=== PATIENT | female | born 1970 | race Caucasian/White ===

== ENCOUNTER 2016-12-29 09:18 | Day surgery (SDC) | payer MEDICARE ==
--- NOTE | 2016-12-29 09:15 | HP ---
DATE OF SURGERY: 12/29/2016 HISTORY OF PRESENT ILLNESS: The patient is a 46 year-old with cerebral palsy, spastic quadriplegia, hypertension, asthma, depression. History of reflux, dysphagia. She had bed bug exterminator enteral feeding access with PEG tube, now the PEG tube is exhausted leaking around the tubing. PAST MEDICAL HISTORY: She has history of pneumonia and in the hospital for 15 days. She had Baclofen pump replaced in the past. PAST SURGICAL HISTORY: She had G-tube placed in the past. She had finger amputations in the past. She had Baclofen pump in the past. She also had a kidney removed when she was younger. MEDICATIONS: Provided by [facility] include Jevity, methenamine hippurate. Please see the provided paperwork from the care facility. She has been on Valium, Nexium, Neurontin, Zanaflex, Zoloft, Flonase spray, aspirin, Nystatin, zinc oxide ointment. ALLERGIES: NKDA. FAMILY HISTORY: Heart disease. SOCIAL HISTORY: No smoking or alcohol abuse. REVIEW OF SYSTEMS: Twelve systems reviewed per admission assessment. History is unable to obtain directly from the patient per the nursing and paperwork. PHYSICAL EXAMINATION: A chronically ill female with spastic quadriplegia, history of mental retardation, cerebral palsy, spastic quadriplegia. CHEST: Equal excursion, nonlabored breathing currently. CVS: Regular rhythm. ABDOMEN: Soft. G-tube site fine. Tube is exhausted with leaking per care staff member. EXTREMITIES: No significant edema. NEURO: Again, spastic quadriplegia. IMPRESSION: Exhausted gastrostomy tube, need for [facility] enteral feeding access. I feel she would benefit from removal of exhausted tube and placing new PEG tube. Risks and benefits explained in detail including but not limited to bleeding or infection, small risk of bowel injury or perforation possibly requiring open procedure, risk of ongoing morbidity, risk of all the drainage around her wound site possibly requiring other placement or repositioning, general risk of anesthesia, deep venous thrombosis, pulmonary embolism, pneumonia but not limited to, risk of aspiration. Consent is obtained. Will proceed with removal of exhausted G-tube and placement of new PEG tube as an outpatient.
[~2016-12-29 09:18] MED LIST: DIPRIVAN 200 MG/20 ML IV ONE; Ketamine HCl 50 MG/ML IV ONE
[2016-12-29] MEDS ORDERED: CEFAZOLIN 2 GM-D5W BAG** 2 GM/50 ML ML IV ONE ×2 (09:27→09:30)
[2016-12-29] MEDS ORDERED: Lactated Ringers 1,000 ML IV ONE (09:30)
[2016-12-29] MEDS ORDERED: Lactated Ringers 1,000 ML IV SCH (09:30)
[2016-12-29] MEDS ORDERED: APRESOLINE 20 MG/ML INJ ONE (11:53)
[2016-12-29 12:17] VITALS: O2SAT 96
[2016-12-29 13:33] VITALS: BP 143/93; PULSE 110
--- NOTE | 2016-12-31 08:50 | OP ---
SURGERY DATE/TIME: 12/29/2016 1114 PREOPERATIVE DIAGNOSES: 1) History of spastic cerebral palsy, dysphagia, need for [facility] enteral feeding access. 2) Exhausted old gastrostomy tube in need of new access. POSTOPERATIVE DIAGNOSES: 1) History of spastic cerebral palsy, dysphagia, need for mcf[facility] enteral feeding access. 2) Exhausted old gastrostomy tube in need of new access. 3) Mild gastritis. PROCEDURES: 1) Esophagogastroscopy with cold biopsy of the antrum to evaluate for Helicobacter pylori. 2) Removal of exhausted G-tube. 3) Placement of new PEG tube endoscopically. SURGEON: Dr. Kole Bingham. ANESTHESIA: MAC. ESTIMATED BLOOD LOSS: Minimal. INDICATIONS: As noted above. Risks and benefits explained in detail and not limited to and consent obtained. DESCRIPTION OF PROCEDURE AND FINDINGS: The patient is taken to the endoscopy room. MAC anesthesia introduced. After official time out and no disagreement with planned procedure, bite block positioned. Video gastroscope easily passed down the esophagus into the stomach. She had a little bit of hiatal hernia. She did have some gastritis in the antrum. Cold biopsy is taken. There was no grzegorz ulcer but given gastritis cold biopsy taken to evaluate for Helicobacter pylori otherwise the pylorus was patent. Bumper was visualized. Light transilluminating through the abdominal wall. At this point the old tube area had been prepped and draped in usual sterile fashion. 1% lidocaine local infiltrated around the area in aseptic technique, sterile gloves and draped. The old tube was then prepped. Guide wire passed down into the stomach grasped with a snare and pulled up and out the pharynx. The old exhausted tube was then carefully removed intact and passed off. The bumper was intact when passed off. Guide wire had been pulled up and out the oropharynx. New PEG tube attached and then pulled back down up through the abdominal wall in usual fashion. Video gastroscope then passed back down the esophagus behind the bumper. It was felt that it was inside the stomach in flush fashion about 2 cm to skin level externally. Bacitracin ointment as well as superior flange, clamp and feeding connector were then attached. The bumper is in good position. Good hemostasis was noted. The scope is then carefully withdrawn. The esophagus carefully inspected. There was no evidence of any full thickness issues or injury secondary to pulling the tube bumper down through the esophagus. The scope is withdrawn. The patient tolerated the procedure well. There were no immediate complications. Findings discussed with the family or caregiver out in the waiting area.
== END 2016-12-29 12:48 | disposition home or self-care (01) ==
LOC: SDC 09:18
PROVIDERS: ATTEND Surgery
PROC: 0DH63UZ Insertion of Feeding Device into Stomach, Percutaneous Approach (ICD-10-PCS; principal; 2016-12-29)
DX: G80.1 Spastic diplegic cerebral palsy (principal); R13.10 Dysphagia, unspecified; K29.70 Gastritis, unspecified, without bleeding; Z43.1 Encounter for attention to gastrostomy; I10 Essential (primary) hypertension; J45.909 Unspecified asthma, uncomplicated; F32.9 Major depressive disorder, single episode, unspecified; Z79.899 Other long term (current) drug therapy
CPT/HCPCS: 00740; 36415; 88305; J0360; J0690; J2704; L0625

== ENCOUNTER 2017-12-31 12:40 | Emergency (ER) | payer MEDICARE ==
[2017-12-31 13:39] VITALS: BP 130/73; O2SAT 98
--- NOTE | 2017-12-31 13:50 | ERPHSYRPT ---
- History of Present Illness Time Seen by Provider: 12/31/17 13:44 Source: other (caregiver) Exam Limitations: no limitations Patient Subjective Stated Complaint: G-Tube problem per EMS Triage Nursing Assessment: Pt presents to the ED with EMS with complaints of hole in her g-tube. medical accounts receivable specialist states home health called Dr. Green who said to have her brought to ED for evaluation. No distress noted, coban wrapped around g -tube prior to arrival to ED due to leaking tube. Pt alert but unable to assess orientation due to pt being nonverbal. Physician History: This is a 47-year-old white female with history of mental retardation scoliosis quadriplegia who is brought by ambulance with complaint that G-tube had a hole in it. Patient was noted to have a hole in her G-tube by home health with coban and was wrapped around the hole. Past medical history includes cerebral palsy, mental impairment, scoliosis, quadriplegia pump, upper extremities are contracted Lower extremities a locked straight Past surgical history includes kidney surgery, amputation bilateral fifth digits , kidney removal, G-tube Timing/Duration: today Severity: mild Modifying Factors: Improves With: nothing Associated Symptoms: other (patient sent in for hole in her G-tube she is nonverbal) Allergies/Adverse Reactions: No Known Drug Allergies Allergy (Verified 12/24/16 15:38) seasonal allergies Home Medications: Aspirin EC 81 mg [Ecotrin 81 mg] 81 mg PEG DAILY 04/09/13 [History] Esomeprazole Magnesium [Nexium] 10 mg PEG DAILY 04/09/13 [History] Fluticasone Propionate [Flonase NASAL] 2 spray NS DAILY 04/09/13 [History] Gabapentin [Neurontin] 250 mg PEG BID 04/09/13 [History] Sertraline HCl [Zoloft] 100 mg PEG DAILY 04/09/13 [History] Acetaminophen [Mapap] 10 ml PEG Q4H PRN PRN 05/01/14 [History] Amlodipine Besylate 5 mg [Norvasc 5 mg] 2.5 mg PEG DAILY 05/01/14 [History ] Diazepam 10 mg/2 ml Syringe [Valium 10 mg/2 ml Syringe] 5 mg PEG QID [History] Hydrocodone Bit/Acetaminophen [Hydrocodon-Acetaminophen 5-325] 10 ml PEG Q6H PRN PRN 05/01/14 [History] Methenamine Hippurate 1 gm PEG BID 05/01/14 [History] Nystatin Cream 15 gm [Nystop 15 gm Cream] 1 applic TOP DAILY PRN PRN 05/01 [History] Zinc Oxide Ointment 30 gm 1 applic TOP DAILY PRN PRN 05/01/14 [History] Lactose-Reduced Food/Fiber [Jevity 1.2 Oscar Liquid] 1,000 ml PEG UD 05/04/15 [ History] Tizanidine HCl 4 mg [Zanaflex 4 MG] 8 mg PEG DAILY 11/05/15 [History] Baclofen 20 mg PEG Q4H 12/24/16 [History] Hx Tetanus, Diphtheria Vaccination/Date Given: No Hx Influenza Vaccination/Date Given: Yes (2012) Hx Pneumococcal Vaccination/Date Given: Yes (2012) Immunizations Up to Date: Yes - Review of Systems Constitutional: No Fever, No Chills Eyes: No Symptoms Ears, Nose, & Throat: No Symptoms Respiratory: No Cough, No Dyspnea Cardiac: No Chest Pain, No Edema, No Syncope Abdominal/Gastrointestinal: Other (hole in G-tube), No Abdominal Pain, No Nausea , No Vomiting, No Diarrhea Genitourinary Symptoms: No Dysuria Musculoskeletal: No Back Pain, No Neck Pain Skin: No Symptoms Neurological: No Dizziness, No Focal Weakness, No Sensory Changes Psychological: No Symptoms Endocrine: No Symptoms All Other Systems: Unable due to condition - Past Medical History Pertinent Past Medical History: Yes Neurological History: Paralysis, Other ENT History: No Pertinent History Cardiac History: Arrhythmia, Hypertension Respiratory History: No Pertinent History Endocrine Medical History: No Pertinent History Musculoskeletal History: Other GI Medical History: GERD, Hernia, Other History: No Pertinent History Psycho-Social History: Anxiety, Other Female Reproductive Disorders: No Pertinent History Other Medical History: CP, mental retardation, scoliosis, quadriplegic,upper limbs contracted,lower limbs locked straight - Past Surgical History Past Surgical History: Yes Neuro Surgical History: No Pertinent History Cardiac: No Pertinent History Respiratory: No Pertinent History Gastrointestinal: No Pertinent History Genitourinary: Kidney Surgery Musculoskeletal: Amputation Female Surgical History: No Pertinent History Other Surgical History: OLYA LITTLE FINGERS AMPUTATED IN PAST. PEG TUBE, kidney removal. - Social History Smoking Status: Never smoker Exposure to second hand smoke: No Drug Use: none Patient Lives Alone: No - Female History Hx Now: No - Nursing Vital Signs Nursing Vital Signs: Initial Vital Signs Temperature 99.0 F 12/31/17 12:44 Pulse Rate 68 12/31/17 12:44 Respiratory Rate 20 12/31/17 12:44 Blood Pressure 115/75 12/31/17 12:44 O2 Sat by Pulse Oximetry 92 L 12/31/17 12:44 Pain Scale Pain Intensity 0 - Physical Exam General Appearance: no apparent distress, alert Eye Exam: PERRL/EOMI, eyes nml inspection Ears, Nose, Throat Exam: normal ENT inspection, TMs normal, pharynx normal, moist mucous membranes Neck Exam: normal inspection, non-tender, supple, full range of motion Respiratory Exam: normal breath sounds, lungs clear, No respiratory distress Cardiovascular Exam: regular rate/rhythm, normal heart sounds, normal peripheral pulses Gastrointestinal/Abdomen Exam: other (abdomen mildly firm, nontender, G-tube in place positive bowel sounds) Back Exam: other (severe scoliosis) Extremity Exam: other (patient does not move her upper arms llower legs locked straight) Neurologic Exam: alert, diesel automotive technician II-XII nml as tested, other (patient does not speak chronically) Skin Exam: normal color, warm, dry, No rash SpO2 Interpretation: normal (98%) SpO2: 98 Oxygen Delivery: Room Air - Course Nursing assessment & vital signs reviewed: Yes - Progress Progress: improved Progress Note: 12/31/17 13:50 this is a 47 year old white female 12/31/17 13:52 She is brought by ambulance with complaint that she had a hole in her G-tube this morning, the G-tube was wrapped with Coban and patient sent into the emergency room. Dr. Concepcion has come by and replaced the G-tube. Patient does not appear to be in any acute distress. Will send patient back to her home, to continue current medications and treatments. - Departure Time of Disposition: 13:54 Departure Disposition: Home Clinical Impression: Problem with gastrostomy tube Condition: Fair Critical Care Time: No Referrals: [facility] [Primary Care Provider] - Additional Instructions: Return home. Continue current medications and treatment. Follow-up with your family doctor if problems. Return for acute distress or for severe symptoms.
[2017-12-31 14:03] VITALS: PULSE 62
--- NOTE | 2018-01-01 09:20 | OP ---
SURGERY DATE/TIME: 12/31/2017 ER PREOPERATIVE DIAGNOSIS: Nonfunctioning G-tube, occluded. ER POSTOPERATIVE DIAGNOSIS: Nonfunctioning G-tube, occluded. ER PROCEDURE: Percutaneous removal and replacement. SURGEON: Adithya Concepcion M.D. INDICATION: The patient had previous PEG tube. It is clogged up. She was seen and examined in the emergency room. We do have consent of the Power Of Production Sorter. DESCRIPTION OF PROCEDURE: The tube was removed with constant pressure. A new percutaneous balloon tube was inserted and was blown up with 10 cc of saline. The bumper was pressed down. Sterile dressing applied. The patient tolerated the procedure satisfactory.
== END 2017-12-31 14:21 | disposition home or self-care (01) ==
LOC: ED 12:40
DX: K94.23 Gastrostomy malfunction (principal); Z79.899 Other long term (current) drug therapy; Z79.82 Long term (current) use of aspirin; G80.9 Cerebral palsy, unspecified
CPT/HCPCS: 43760; 99283

== ENCOUNTER 2018-02-05 16:43 | Emergency (ER) | payer MEDICARE ==
--- NOTE | 2018-02-05 17:04 | ERPHSYRPT ---
- History of Present Illness Time Seen by Provider: 02/05/18 16:58 Source: EMS, other (caregiver) Exam Limitations: other (severe intellectual difficulties.) Physician History: The patient is a 47-year-old female brought from the [facility] home by ambulance for projectile vomiting and excessive mucus from her mouth. The patient has severe intellectual disabilities and cannot communicate. The caregiver states that she has vomited 3 times. Last week she had a new Layton catheter placed and was also on 1 week of Bactrim. Now her urine output today has diminished and have been blood clots in the urine bag. She has a feeding tube. She has severe deformities of extremities. Timing/Duration: today Severity: moderate Modifying Factors: Improves With: nothing Associated Symptoms: nausea, vomiting Allergies/Adverse Reactions: No Known Drug Allergies Allergy (Verified 02/05/18 17:14) seasonal allergies Home Medications: Aspirin EC 81 mg [Ecotrin 81 mg] 81 mg PEG DAILY 04/09/13 [History] Fluticasone Propionate [Flonase NASAL] 2 spray NS DAILY 04/09/13 [History] Gabapentin [Neurontin] 250 mg PEG BID 04/09/13 [History] Sertraline HCl [Zoloft] 100 mg PEG DAILY 04/09/13 [History] Acetaminophen [Mapap] 10 ml PEG Q4H PRN PRN 05/01/14 [History] Amlodipine Besylate 5 mg [Norvasc 5 mg] 2.5 mg PEG DAILY 05/01/14 [History ] Diazepam 10 mg/2 ml Syringe [Valium 10 mg/2 ml Syringe] 5 mg PEG QID [History] Hydrocodone Bit/Acetaminophen [Hydrocodon-Acetaminophen 5-325] 10 ml PEG Q6H PRN PRN 05/01/14 [History] Methenamine Hippurate 1 gm PEG BID 05/01/14 [History] Nystatin Cream 15 gm [Nystop 15 gm Cream] 1 applic TOP DAILY PRN PRN 05/01 [History] Zinc Oxide Ointment 30 gm 1 applic TOP DAILY PRN PRN 05/01/14 [History] Lactose-Reduced Food/Fiber [Jevity 1.2 Oscar Liquid] 1,000 ml PEG UD 05/04/15 [ History] Tizanidine HCl 4 mg [Zanaflex 4 MG] 8 mg PEG DAILY 11/05/15 [History] Baclofen 20 mg PEG Q4H 12/24/16 [History] Omeprazole/Sodium Bicarbonate [Omeppi 40 mg-1,100 mg Capsule] 1 ea DAILY [History] Hx Tetanus, Diphtheria Vaccination/Date Given: No Hx Influenza Vaccination/Date Given: Yes (2012) Hx Pneumococcal Vaccination/Date Given: Yes (2012) - Review of Systems Constitutional: No Fever, No Chills Eyes: No Symptoms Ears, Nose, & Throat: Other (drooling) Respiratory: No Cough, No Dyspnea Cardiac: No Symptoms Abdominal/Gastrointestinal: Vomiting Genitourinary Symptoms: No Dysuria Musculoskeletal: No Back Pain, No Neck Pain Skin: No Rash Neurological: No Dizziness, No Focal Weakness, No Sensory Changes Psychological: No Symptoms Endocrine: No Symptoms Hematologic/Lymphatic: No Symptoms Immunological/Allergic: No Symptoms All Other Systems: Reviewed and Negative - Past Medical History Pertinent Past Medical History: Yes Neurological History: Paralysis, Other ENT History: No Pertinent History Cardiac History: Arrhythmia, Hypertension Respiratory History: No Pertinent History Endocrine Medical History: No Pertinent History Musculoskeletal History: Other GI Medical History: GERD, Hernia, Other History: No Pertinent History Psycho-Social History: Anxiety, Other Female Reproductive Disorders: No Pertinent History Other Medical History: CP, mental retardation, scoliosis, quadriplegic,upper limbs contracted,lower limbs locked straight - Past Surgical History Past Surgical History: Yes Neuro Surgical History: No Pertinent History Cardiac: No Pertinent History Respiratory: No Pertinent History Gastrointestinal: No Pertinent History Genitourinary: Kidney Surgery Musculoskeletal: Amputation Female Surgical History: No Pertinent History Other Surgical History: OLYA LITTLE FINGERS AMPUTATED IN PAST. PEG TUBE, kidney removal. - Social History Smoking Status: Never smoker Exposure to second hand smoke: No Drug Use: none Patient Lives Alone: No - Nursing Vital Signs Nursing Vital Signs: Initial Vital Signs Temperature 98.1 F 02/05/18 17:05 Pulse Rate 86 02/05/18 17:05 Respiratory Rate 16 02/05/18 17:05 Blood Pressure 156/110 02/05/18 17:05 O2 Sat by Pulse Oximetry 95 02/05/18 17:05 Pain Scale Pain Intensity 0 - Physical Exam General Appearance: no apparent distress, alert Eye Exam: PERRL/EOMI, eyes nml inspection Ears, Nose, Throat Exam: TMs normal, pharynx normal, moist mucous membranes, other (excessive drooling) Neck Exam: normal inspection, non-tender, supple, full range of motion Respiratory Exam: normal breath sounds, rhonchi, No respiratory distress Cardiovascular Exam: regular rate/rhythm, normal heart sounds, normal peripheral pulses Gastrointestinal/Abdomen Exam: soft, normal bowel sounds, No tenderness, No mass Back Exam: No CVA tenderness, No vertebral tenderness Extremity Exam: pelvis stable, other (upper extremity contractions; abnormally shortened and deformed lower extremities.) Neurologic Exam: alert, oriented x 3, cooperative, normal mood/affect, nml cerebellar function, nml station & gait, sensation nml, No motor deficits Skin Exam: normal color, warm, dry, No rash Lymphatic Exam: No adenopathy SpO2 Interpretation: normal Oxygen Delivery: Room Air - Radiology Exams Chest X-ray Interpretation: Reviewed by me, Teleradiologist Report (per Dr Lay), Other (left lung interstitial congestion.) - CT Exams Abdomen/Pelvis CT Interpretation: Tele-radiologist Report (per DR Alexander), Other (status post right nephrectomy; thickening of rectal wall; no acute findings) Ordered Tests: Active Orders 24 hr Category Date Time Status Cath for Specimen-Straight STAT Care 02/05/18 17:11 Active IV Insertion STAT Care 02/05/18 17:08 Active ABDOMEN AND PELVIS W/0 CONTRAS [CT] Stat Exams 02/05/18 17:10 Taken CHEST 1 VIEW (PORTABLE) Stat Exams 02/05/18 17:09 Taken BLOOD CULTURE Stat Lab 02/05/18 17:20 Received CBC W DIFF Stat Lab 02/05/18 17:08 Completed CMP Stat Lab 02/05/18 17:23 Completed CULTURE,URINE Stat Lab 02/05/18 18:22 Received LIPASE Stat Lab 02/05/18 17:23 Completed Lactic Acid Stat Lab 02/05/18 17:20 Completed TROPONIN Q3H Lab 02/05/18 17:23 Completed UA W/ MICROSCOPIC Stat Lab 02/05/18 18:22 Completed Medication Summary Discontinued Medications Generic Name Dose Route Start Last Admin Trade Name Freq PRN Reason Stop Dose Admin Sodium Chloride 500 mls @ 999 mls/hr 02/05/18 17:08 02/05/18 18:55 Sodium Chloride 0.9% 1000 Ml IV 02/05/18 17:38 0 mls/hr .Q31M STA Infusion Sodium Chloride Confirm 02/05/18 17:16 Sodium Chloride 0.9% 1000 Ml Administered 02/05/18 17:17 Dose 1,000 mls @ ud .ROUTE .STK-MED ONE Ondansetron HCl 4 mg 02/05/18 17:11 02/05/18 17:20 Zofran 4 Mg/2 Ml Vial IV 02/05/18 17:12 4 mg STAT ONE Administration Ondansetron HCl Confirm 02/05/18 17:16 Zofran 4 Mg/2 Ml Vial Administered 02/05/18 17:17 Dose 4 mg .ROUTE .STK-MED ONE Lab/Rad Data: Laboratory Result Diagrams 02/05/18 17:08 02/05/18 17:23 Laboratory Results 02/05/18 02/05/18 02/05/18 Range/Units 18:22 17:23 17:23 WBC (4.0-10.5) K/mm3 RBC (4.1-5.4) M/mm3 Hgb (12.0-16.0) gm/dl Hct (35-47) % MCV (78-100) fl MCH (26-32) pg MCHC (32-36) g/dl RDW (11.5-14.0) % Plt Count (150-450) K/mm3 MPV (6-9.5) fl Gran % (36.0-66.0) % Eos # (Auto) (0-0.5) Absolute Lymphs (auto) (1.0-4.6) Absolute Monos (auto) (0.0-1.3) Lymphocytes % (24.0-44.0) % Monocytes % (0.0-12.0) % Eosinophils % (0.00-5.0) % Basophils % (0.0-0.4) % Absolute Granulocytes (1.4-6.9) Basophils # (0-0.4) Sodium 138 (137-145) mmol/L Potassium 4.3 (3.5-5.1) mmol/L Chloride 103 (98-107) mmol/L Carbon Dioxide 23 (22-30) mmol/L Anion Gap 16.1 H (5-15) MEQ/L BUN 16 (7-17) mg/dL Creatinine 0.38 L (0.52-1.04) mg/dL Estimated GFR > 60.0 ML/MIN Glucose 124 H (74-106) mg/dL Lactic Acid (0.4-2.0) Calcium 9.5 (8.4-10.2) mg/dL Total Bilirubin 0.40 (0.2-1.3) mg/dL AST 30 (14-36) U/L ALT 38 H (0-35) U/L Alkaline Phosphatase 175 H (38-126) U/L Troponin I < 0.012 (0.000-0.034) ng/mL Serum Total Protein 8.2 (6.3-8.2) g/dL Albumin 4.7 (3.5-5.0) g/dL Lipase 8979 H (23-300) U/L Ur Collection Type VOID Urine Color YELLOW (YELLOW) Urine Appearance CLEAR (CLEAR) Urine pH 7.0 (5-6) Ur Specific [place] 1.015 (1.005-1.025) Urine Protein 30 (Negative) Urine Ketones NEGATIVE (NEGATIVE) Urine Blood 250 (0-5) Saqib/ul Urine Nitrite POSITIVE (NEGATIVE) Urine Bilirubin NEGATIVE (NEGATIVE) Urine Urobilinogen NORMAL (0-1) mg/dL Ur Leukocyte Esterase 2+ (NEGATIVE) Urine Microscopic RBC 50-100 (0-2) /HPF Urine Microscopic WBC 25-50 (0-5) /HPF Ur Epithelial Cells MODERATE (FEW) /HPF Amorphous Crystals MANY (NEGATIVE) /HPF Urine Bacteria PACKED (NEGATIVE) /HPF Urine Mucus MODERATE (NEGATIVE) /HPF Urine Culture Reflexed YES (NO) Urine Glucose NEGATIVE (NEGATIVE) mg/dL Specimen Received 02/05/18 1830 02/05/18 02/05/18 Range/Units 17:20 17:08 WBC 12.8 H (4.0-10.5) K/mm3 RBC 5.05 (4.1-5.4) M/mm3 Hgb 16.1 H (12.0-16.0) gm/dl Hct 46.6 (35-47) % MCV 92.3 (78-100) fl MCH 31.8 (26-32) pg MCHC 34.5 (32-36) g/dl RDW 12.0 (11.5-14.0) % Plt Count 233 (150-450) K/mm3 MPV 10.6 H (6-9.5) fl Gran % 89.7 H (36.0-66.0) % Eos # (Auto) 0.03 (0-0.5) Absolute Lymphs (auto) 0.74 L (1.0-4.6) Absolute Monos (auto) 0.53 (0.0-1.3) Lymphocytes % 5.8 L (24.0-44.0) % Monocytes % 4.1 (0.0-12.0) % Eosinophils % 0.2 (0.00-5.0) % Basophils % 0.2 (0.0-0.4) % Absolute Granulocytes 11.49 H (1.4-6.9) Basophils # 0.03 (0-0.4) Sodium (137-145) mmol/L Potassium (3.5-5.1) mmol/L Chloride (98-107) mmol/L Carbon Dioxide (22-30) mmol/L Anion Gap (5-15) MEQ/L BUN (7-17) mg/dL Creatinine (0.52-1.04) mg/dL Estimated GFR ML/MIN Glucose (74-106) mg/dL Lactic Acid 1.7 (0.4-2.0) Calcium (8.4-10.2) mg/dL Total Bilirubin (0.2-1.3) mg/dL AST (14-36) U/L ALT (0-35) U/L Alkaline Phosphatase (38-126) U/L Troponin I (0.000-0.034) ng/mL Serum Total Protein (6.3-8.2) g/dL Albumin (3.5-5.0) g/dL Lipase (23-300) U/L Ur Collection Type Urine Color (YELLOW) Urine Appearance (CLEAR) Urine pH (5-6) Ur Specific [place] (1.005-1.025) Urine Protein (Negative) Urine Ketones (NEGATIVE) Urine Blood (0-5) Saqib/ul Urine Nitrite (NEGATIVE) Urine Bilirubin (NEGATIVE) Urine Urobilinogen (0-1) mg/dL Ur Leukocyte Esterase (NEGATIVE) Urine Microscopic RBC (0-2) /HPF Urine Microscopic WBC (0-5) /HPF Ur Epithelial Cells (FEW) /HPF Amorphous Crystals (NEGATIVE) /HPF Urine Bacteria (NEGATIVE) /HPF Urine Mucus (NEGATIVE) /HPF Urine Culture Reflexed (NO) Urine Glucose (NEGATIVE) mg/dL Specimen Received - Progress Progress: unchanged Counseled pt/family regarding: lab results, diagnosis, rad results - Departure Time of Disposition: 19:18 Departure Disposition: Transfer (transfer to [facility] per Dr Little) Clinical Impression: Pancreatitis, UTI (urinary tract infection) Condition: Stable Critical Care Time: No Referrals: SHIV LUNDBERG MD [Primary Care Provider] -
[2018-02-05] MEDS ORDERED: Zofran 4 MG/2 ML VIAL IV ONE (17:11)
[2018-02-05] MEDS ORDERED: Sodium Chloride 0.9% 1000 ML 1,000 ML ONE (17:16)
[2018-02-05] MEDS ORDERED: Zofran 4 MG/2 ML VIAL ONE (17:16)
[2018-02-05 17:23] LABS: BASOPHIL % 0.2 % (0.0-0.4); Basophil (Absolute #) 0.03 (0-0.4); Eosinophil % 0.2 % (0.00-5.0); Eosinophil (Absolute #) 0.03 (0-0.5); Granulocyte Absolute (ANC) 11.49 (1.4-6.9); Granulocytes % 89.7 % (36.0-66.0); Hematocrit 46.6 % (35-47); Hemoglobin 16.1 gm/dl (12.0-16.0); Lymphocyte (Absolute #) 0.74 (1.0-4.6); Lymphocytes % 5.8 % (24.0-44.0); Mean Cell Volume 92.3 fl (78-100); Mean Corpuscular Hemoglobin 31.8 pg (26-32); Mean Corpuscular Hgb Concent. 34.5 g/dl (32-36); Mean Platelet Volume 10.6 fl (6-9.5); Monocyte (Absolute #) 0.53 (0.0-1.3); Monocytes % 4.1 % (0.0-12.0); Platelet Count 233 K/mm3 (150-450); Red Blood Count 5.05 M/mm3 (4.1-5.4); White Blood Count 12.8 K/mm3 (4.0-10.5)
[2018-02-05 17:43] LABS: ALBUMIN 4.7 g/dL (3.5-5.0); ALKALINE PHOSPHATASE 175 U/L (38-126); ANION GAP 16.1 MEQ/L (5-15); BLOOD UREA NITROGEN 16 mg/dL (7-17); CHLORIDE 103 mmol/L (98-107); Calcium 9.5 mg/dL (8.4-10.2); Carbon Dioxide 23 mmol/L (22-30); Creatinine 1 0.38 mg/dL (0.52-1.04); Glucose 124 mg/dL (74-106); Potassium 4.3 mmol/L (3.5-5.1); SGOT/AST 30 U/L (14-36); SGPT/ALT 38 U/L (0-35); SODIUM 138 mmol/L (137-145); Total Protein 8.2 g/dL (6.3-8.2)
[2018-02-05 18:41] LABS: LIPASE 8979 U/L (23-300)
[2018-02-05 18:42] LABS: Appearance CLEAR (CLEAR); Bilirubin NEGATIVE (NEGATIVE); Blood 250 Ery/ul (0-5); Glucose NEGATIVE (NEGATIVE); Ketones NEGATIVE (NEGATIVE); Leukocyte Esterase 2+ (NEGATIVE); Mucus MODERATE /HPF (NEGATIVE); Nitrite POSITIVE (NEGATIVE); Protein,Urine Dip 30 (Negative); Specific Gravity 1.015 (1.005-1.025); Urobilinogen NORMAL mg/dL (0-1)
[2018-02-05 18:43] LABS: Amourphous Crystal MANY /HPF (NEGATIVE); Bacteria PACKED /HPF (NEGATIVE); Epithelial Cells MODERATE /HPF (FEW); RBC 50-100 /HPF (0-2); WBC 25-50 /HPF (0-5)
[2018-02-05 20:59] VITALS: BP 176/103; PULSE 103; O2SAT 93
--- NOTE | 2018-02-05 22:11 | XRAY ---
Indication: Nausea and vomiting. Unable to follow instructions. Multiple contiguous axial images obtained through the abdomen and pelvis without contrast as ordered. Comparison: March 04, 2007. Again severe dextrorotoscoliosis. Lung bases are grossly clear. Heart is not enlarged. New PEG tube with balloon tip in the gastric lumen. Stomach is mildly fluid and air distended. Noncontrasted stomach and bowel loops appear nonobstructed. The fold catheter with balloon tip in lateral lumen. Mild urinary bladder wall thickening either from incomplete distention versus cystitis. No free fluid/air. Again right nephrectomy. New left upper renal punctate calcification. Remaining liver, gallbladder, pancreas, spleen, left adrenal gland, left kidney, left ureter, bladder, uterus, and aorta appear unremarkable for noncontrast exam. Osseous structures again demonstrates bilateral hip dysplasia. New finding old right inferior pubic ramus fracture. Impression: 1. Query borderline urinary bladder wall thickening either from incomplete distention versus cystitis. 2. New indeterminant left renal cortical punctate calcification. 3. New PEG tube and Layton catheter in situ. 4. Stable bony deformities including severe dextrorotoscoliosis and bilateral hip dysplasia. New finding old right inferior pubic ramus fracture. Comment: Preliminary interpretation was made by [facility]. No critical discrepancy. CTDI 23.69
--- NOTE | 2018-02-05 22:13 | XRAY ---
Indication: Nausea and vomiting. Excessive drooling. Possible aspiration. Comparison: April 05, 2013. Portable chest demonstrates new diffuse left lung hazy airspace opacity without consolidation or large effusion. Remaining heart and right lung unremarkable. Bony thorax again demonstrates dextrorotoscoliosis. Comment: Preliminary interpretation was made by [facility]. No discrepancy.
== END 2018-02-05 21:14 | disposition short-term general hospital (02) ==
LOC: ED 16:43
DX: K85.90 Acute pancreatitis without necrosis or infection, unspecified (principal); N39.0 Urinary tract infection, site not specified; Z79.899 Other long term (current) drug therapy; Z79.82 Long term (current) use of aspirin; F79 Unspecified intellectual disabilities
CPT/HCPCS: 36000; 36415; 71045; 74176; 80053; 81000; 83605; 83690; 84484; 85025; 87040; 87077; 87086; 87186; 96360; 96374; 99285; P9612; 99284; J2405

== ENCOUNTER 2018-03-28 18:30 | Emergency (ER) | payer MEDICARE ==
--- NOTE | 2018-03-28 19:41 | ERPHSYRPT ---
- History of Present Illness Time Seen by Provider: 03/28/18 19:05 Historian: family, EMS Exam Limitations: clinical condition, other (pt has severe mental retardation/ deficiency) Patient Subjective Stated Complaint: pt brought in by ambulance for gtube coming out, pt was found in bed with gtube in bed with feeding running, caregiver unsure of what happened, pt in nonverbal. Triage Nursing Assessment: pt awake, resp easy, skin w/d/p.no edema, pt has fc in place and draining urine, pt has gtube site to abd. Physician History: 47 y/o white female, who has had a gastric tube in place for 4 to 5 years, presents to ED after G tube dislodged at approx 1400 today. pt brought into ED via ems for replacement. Timing/Duration: today Activities at Onset: none Quality: other (g tube dislodged) Abdominal Pain Onset Location: other (no abd pain) Pain Radiation: no radiation Severity of Pain-Max: none Severity of Pain-Current: none Modifying Factors: Improves With: nothing Associated Symptoms: No chest pain, No diaphoresis, No diarrhea, No loss of appetite, No nausea, No shortness of breath, No vomiting Previous symptoms: same symptoms as today Allergies/Adverse Reactions: Iodinated Contrast- Oral and IV Dye Adverse Reaction (Verified 03/28/18 18:38) Home Medications: Aspirin EC 81 mg [Ecotrin 81 mg] 81 mg PEG DAILY 04/09/13 [History] Fluticasone Propionate [Flonase NASAL] 2 spray NS DAILY 04/09/13 [History] Gabapentin [Neurontin] 250 mg PEG BID 04/09/13 [History] Sertraline HCl [Zoloft] 100 mg PEG DAILY 04/09/13 [History] Acetaminophen [Mapap] 10 ml PEG Q4H PRN PRN 05/01/14 [History] Amlodipine Besylate 5 mg [Norvasc 5 mg] 2.5 mg PEG DAILY 05/01/14 [History ] Diazepam 10 mg/2 ml Syringe [Valium 10 mg/2 ml Syringe] 5 mg PEG QID [History] Hydrocodone Bit/Acetaminophen [Hydrocodon-Acetaminophen 5-325] 10 ml PEG Q6H PRN PRN 05/01/14 [History] Methenamine Hippurate 1 gm PEG BID 05/01/14 [History] Nystatin Cream 15 gm [Nystop 15 gm Cream] 1 applic TOP DAILY PRN PRN 05/01 [History] Zinc Oxide Ointment 30 gm 1 applic TOP DAILY PRN PRN 05/01/14 [History] Lactose-Reduced Food/Fiber [Jevity 1.2 Oscar Liquid] 1,000 ml PEG UD 05/04/15 [ History] Tizanidine HCl 4 mg [Zanaflex 4 MG] 8 mg PEG DAILY 11/05/15 [History] Baclofen 20 mg PEG Q4H 12/24/16 [History] Omeprazole/Sodium Bicarbonate [Omeppi 40 mg-1,100 mg Capsule] 1 ea DAILY [History] Hx Tetanus, Diphtheria Vaccination/Date Given: No Hx Influenza Vaccination/Date Given: No Hx Pneumococcal Vaccination/Date Given: Yes Immunizations Up to Date: Yes - Review of Systems Constitutional: No Symptoms, No Fever Eyes: No Symptoms, No Discharge, No Eye Pain Ears, Nose, & Throat: No Symptoms, No Ear Pain, No Hearing Changes, No Nose Pain , No Mouth Pain Respiratory: No Symptoms, No Cough, No Dyspnea, No Stridor, No Wheezing Cardiac: No Symptoms, No Chest Pain, No Palpitations, No Syncope Abdominal/Gastrointestinal: No Symptoms, Other (g tube dislodged), No Abdominal Pain, No Nausea, No Vomiting Genitourinary Symptoms: No Symptoms, No Dysuria, No Frequency, No Hematuria Musculoskeletal: No Symptoms Skin: No Symptoms Neurological: No Symptoms Psychological: No Symptoms Endocrine: No Symptoms Hematologic/Lymphatic: No Symptoms Immunological/Allergic: No Symptoms All Other Systems: Reviewed and Negative - Past Medical History Pertinent Past Medical History: Yes Neurological History: Paralysis, Other ENT History: No Pertinent History Cardiac History: Arrhythmia, Hypertension Respiratory History: No Pertinent History Endocrine Medical History: No Pertinent History Musculoskeletal History: Other GI Medical History: GERD, Hernia, Other History: No Pertinent History Psycho-Social History: Anxiety, Other Female Reproductive Disorders: No Pertinent History Other Medical History: CP, mental retardation, scoliosis, quadriplegic,upper limbs contracted,lower limbs locked straight - Past Surgical History Past Surgical History: Yes Neuro Surgical History: No Pertinent History Cardiac: No Pertinent History Respiratory: No Pertinent History Gastrointestinal: No Pertinent History Genitourinary: Kidney Surgery Musculoskeletal: Amputation Female Surgical History: No Pertinent History Other Surgical History: OLYA LITTLE FINGERS AMPUTATED IN PAST. PEG TUBE, kidney removal. - Social History Smoking Status: Never smoker Exposure to second hand smoke: No Drug Use: none Patient Lives Alone: No - Female History Hx Last Menstrual Period: none Hx Now: No - Nursing Vital Signs Nursing Vital Signs: Initial Vital Signs Temperature 97.0 F 03/28/18 18:31 Pulse Rate 110 H 03/28/18 18:31 Respiratory Rate 20 03/28/18 18:31 Blood Pressure 115/97 03/28/18 18:31 O2 Sat by Pulse Oximetry 97 03/28/18 18:31 Pain Scale Pain Intensity 0 - Physical Exam General Appearance: no apparent distress, alert Eye Exam: PERRL/EOMI Ears, Nose, Throat Exam: normal ENT inspection Neck Exam: normal inspection, non-tender, supple, full range of motion Respiratory Exam: normal breath sounds, lungs clear, airway intact, No chest tenderness, No respiratory distress, No accessory muscle use, No rhonchi, No wheezing, No stridor Cardiovascular Exam: regular rate/rhythm, normal heart sounds Gastrointestinal/Abdomen Exam: soft, normal bowel sounds, other (g tube dislodged.), No tenderness, No distention, No guarding, No rebound Pelvic Exam: not done Rectal Exam: not done Back Exam: other (pt severely, chronically contracted), No normal inspection, No normal range of motion, No CVA tenderness, No vertebral tenderness Extremity Exam: other (pt severely chronically contracted) Neurologic Exam: alert Skin Exam: normal color, warm Lymphatic Exam: No adenopathy SpO2 Interpretation: normal SpO2: 97 Oxygen Delivery: Room Air Procedures - Additional Procedures Additional Procedures: gastric tube replacement Progress: area of g tube opening probed with hemostat. opening into stomach found. opening stretched. 20 maori g tube placed. balloon inflated with 15ml of sterile water. no complications - Course Nursing assessment & vital signs reviewed: Yes - Progress Progress: improved Counseled pt/family regarding: diagnosis, need for follow-up - Departure Time of Disposition: 19:43 Departure Disposition: Home Clinical Impression: Complaint associated with gastric tube Condition: Stable Critical Care Time: No Referrals: SHIV LUNDBERG MD [Primary Care Provider] - Additional Instructions: resume gastric tube routine care, flushing and tube feeds. take every precaution to prevent gastric tube dislodgement at time of transferring patient anywhere
[2018-03-28 19:56] VITALS: BP 140/105; PULSE 120; O2SAT 92
== END 2018-03-28 20:48 | disposition home or self-care (01) ==
LOC: ED 18:30
DX: K94.23 Gastrostomy malfunction (principal); Z79.899 Other long term (current) drug therapy
CPT/HCPCS: 43760; 99283

== ENCOUNTER 2018-08-25 08:39 | Emergency (ER) | payer MEDICARE ==
[2013-04-05 14:20] VITALS: BP 158/82
--- NOTE | 2018-08-25 09:17 | ERPHSYRPT ---
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 PT slightly tachypnic. PT g- tube not in place. training associate at bedside. Physician History: 48 y/o white female with a longstanding gastric tube in place this am. came out during sleep. pt brought to ED for replacement of g tube. the caregiver did not bring the tube with her. does not know the specific kind Timing/Duration: today Modifying Factors: Improves With: nothing Associated Symptoms: vomiting (chronic intermittent) Allergies/Adverse Reactions: Iodinated Contrast- Oral and IV Dye Adverse Reaction (Verified 03/28/18 18:38) Home Medications: Aspirin EC 81 mg [Ecotrin 81 mg] 81 mg PEG DAILY 04/09/13 [History] Fluticasone Propionate [Flonase NASAL] 2 spray NS DAILY 04/09/13 [History] Gabapentin [Neurontin] 250 mg PEG BID 04/09/13 [History] Sertraline HCl [Zoloft] 100 mg PEG DAILY 04/09/13 [History] Acetaminophen [Mapap] 10 ml PEG Q4H PRN PRN 05/01/14 [History] Amlodipine Besylate 5 mg [Norvasc 5 mg] 2.5 mg PEG DAILY 05/01/14 [History ] Diazepam 10 mg/2 ml Syringe [Valium 10 mg/2 ml Syringe] 5 mg PEG QID [History] Hydrocodone Bit/Acetaminophen [Hydrocodon-Acetaminophen 5-325] 10 ml PEG Q6H PRN PRN 05/01/14 [History] Methenamine Hippurate 1 gm PEG BID 05/01/14 [History] Nystatin Cream 15 gm [Nystop 15 gm Cream] 1 applic TOP DAILY PRN PRN 05/01 [History] Zinc Oxide Ointment 30 gm 1 applic TOP DAILY PRN PRN 05/01/14 [History] Lactose-Reduced Food/Fiber [Jevity 1.2 Oscar Liquid] 1,000 ml PEG UD 05/04/15 [ History] Tizanidine HCl 4 mg [Zanaflex 4 MG] 8 mg PEG DAILY 11/05/15 [History] Baclofen 20 mg PEG Q4H 12/24/16 [History] Omeprazole/Sodium Bicarbonate [Omeppi 40 mg-1,100 mg Capsule] 1 ea DAILY [History] Hx Tetanus, Diphtheria Vaccination/Date Given: No Hx Influenza Vaccination/Date Given: (unknown) Hx Pneumococcal Vaccination/Date Given: (unknown) Immunizations Up to Date: Yes - Review of Systems Constitutional: No Symptoms Eyes: No Symptoms Ears, Nose, & Throat: No Symptoms Respiratory: No Symptoms Cardiac: No Symptoms Abdominal/Gastrointestinal: No Symptoms Genitourinary Symptoms: No Symptoms Musculoskeletal: No Symptoms Skin: No Symptoms Neurological: No Symptoms Psychological: No Symptoms Endocrine: No Symptoms Hematologic/Lymphatic: No Symptoms Immunological/Allergic: No Symptoms All Other Systems: Reviewed and Negative - Past Medical History Pertinent Past Medical History: Yes Neurological History: Paralysis, Other ENT History: No Pertinent History Cardiac History: Arrhythmia, Hypertension Respiratory History: No Pertinent History Endocrine Medical History: No Pertinent History Musculoskeletal History: Other GI Medical History: GERD, Hernia, Other History: No Pertinent History Psycho-Social History: Anxiety, Other Female Reproductive Disorders: No Pertinent History Other Medical History: CP, mental retardation, scoliosis, quadriplegic,upper limbs contracted,lower limbs locked straight - Past Surgical History Past Surgical History: Yes Neuro Surgical History: No Pertinent History Cardiac: No Pertinent History Respiratory: No Pertinent History Gastrointestinal: No Pertinent History Genitourinary: Kidney Surgery Musculoskeletal: Amputation Female Surgical History: No Pertinent History Other Surgical History: OLYA LITTLE FINGERS AMPUTATED IN PAST. PEG TUBE, kidney removal. - Social History Smoking Status: Never smoker Exposure to second hand smoke: Yes Drug Use: none Patient Lives Alone: No - Female History Hx Now: No - Nursing Vital Signs Nursing Vital Signs: Initial Vital Signs Temperature 99.1 F 08/25/18 08:40 Pulse Rate 118 H 08/25/18 08:40 Respiratory Rate 22 08/25/18 08:40 Pain Scale Pain Intensity 0 - Physical Exam General Appearance: no apparent distress Eye Exam: PERRL/EOMI Ears, Nose, Throat Exam: normal ENT inspection Neck Exam: normal inspection Respiratory Exam: normal breath sounds Cardiovascular Exam: regular rate/rhythm Gastrointestinal/Abdomen Exam: soft, normal bowel sounds, other (g tube ostomy site present; no infection), No tenderness, No guarding, No rebound Pelvic Exam: not done Rectal Exam: not done Back Exam: normal inspection Extremity Exam: normal inspection Neurologic Exam: alert Skin Exam: normal color, warm, dry Lymphatic Exam: No adenopathy SpO2 Interpretation: normal O2 Delivery: Room Air Procedures - Additional Procedures Additional Procedures: gastric tube replacement Progress: judi well; no complications - Course Nursing assessment & vital signs reviewed: Yes - Progress Progress: unchanged Counseled pt/family regarding: diagnosis, need for follow-up - Departure Time of Disposition: 09:19 Departure Disposition: Home Clinical Impression: Complaint associated with gastric tube, PEG (percutaneous endoscopic gastrostomy) adjustment/replacement/removal Condition: Stable Critical Care Time: No Referrals: SHIV LUNDBERG MD [Primary Care Provider] - Additional Instructions: continue gastric tube care and maintenance. may restart tube feeds.
[2018-08-25 09:38] VITALS: PULSE 110
== END 2018-08-25 09:38 | disposition home or self-care (01) ==
LOC: ED 08:39
DX: Z43.1 Encounter for attention to gastrostomy (principal); F41.9 Anxiety disorder, unspecified; F79 Unspecified intellectual disabilities; M41.9 Scoliosis, unspecified; G82.50 Quadriplegia, unspecified; M62.462 Contracture of muscle, left lower leg; M62.461 Contracture of muscle, right lower leg; I10 Essential (primary) hypertension; K21.9 Gastro-esophageal reflux disease without esophagitis; Z79.899 Other long term (current) drug therapy
CPT/HCPCS: 99283

== ENCOUNTER 2018-08-27 10:31 | Inpatient (IN) | payer MEDICARE ==
[2018-08-27] MEDS ORDERED: TYLENOL SUSPENSION 160 MG/5 ML PEG PRN (11:20)
[2018-08-27] MEDS ORDERED: MEDICATION INTERVENTION PO SCH ×2 (11:30)
[2018-08-27] MEDS ORDERED: Sodium Chloride 0.9% 1000 ML 1,000 ML IV SCH (11:30)
[2018-08-27] MEDS ORDERED: LIORESAL 10 MG PEG SCH (12:00)
[2018-08-27] MEDS ORDERED: Valium 5 MG PEG SCH (12:00)
[2018-08-27 12:19] LABS: Hematocrit 43.2 % (35-47); Hemoglobin 14.5 gm/dl (12.0-16.0); Mean Cell Volume 93.1 fl (78-100); Mean Corpuscular Hemoglobin 31.3 pg (26-32); Mean Corpuscular Hgb Concent. 33.6 g/dl (32-36); Mean Platelet Volume 10.7 fl (6-9.5); Platelet Count 263 K/mm3 (150-450); Red Blood Count 4.64 M/mm3 (4.1-5.4); Red Cell Distribution Width 12.5 % (11.5-14.0)
--- NOTE | 2018-08-27 12:29 | XRAY ---
Exam: AP semierect upright portable chest film from 08/27/2018. Comparison: AP supine portable chest film from 02/05/2018. Indication: 48-year-old female with dehydration, pneumonia. Findings: The patient is laterally tilted toward her left representing no change. The transverse heart size appears within normal limits for this AP portable technique. Mild left perihilar vascular/interstitial congestion is again seen representing no significant change from 02/05/2018 (i.e. chronic). The remainder of the lung crook is clear. The level of inspiration is not deep. No pneumothorax or definite pleural fluid is seen. A PEG tube is seen within the upper midabdomen. Some surgical clips are seen within the right upper quadrant, perhaps due to prior cholecystectomy. There is a moderate to marked rotary dextroscoliosis within the lower thoracic spine. Some mild degenerative disc disease and degenerative joint disease are seen at C6-C7 and the right uncovertebral joint. Impression: 1. Low lung volumes with mild left perihilar vascular/interstitial congestion without definite airspace infiltrate. This is similar to 02/05/2018 suggesting that this is probably chronic. 2. I see no new airspace infiltrate or other acute cardiopulmonary disease.
[2018-08-27 12:49] LABS: ALBUMIN 4.5 g/dL (3.5-5.0); ALKALINE PHOSPHATASE 166 U/L (38-126); ANION GAP 13.3 MEQ/L (5-15); BLOOD UREA NITROGEN 8 mg/dL (7-17); CHLORIDE 103 mmol/L (98-107); Calcium 9.7 mg/dL (8.4-10.2); Carbon Dioxide 28 mmol/L (22-30); Creatinine 1 0.25 mg/dL (0.52-1.04); Glucose 90 mg/dL (74-106); Potassium 4.3 mmol/L (3.5-5.1); SGOT/AST 23 U/L (14-36); SGPT/ALT 24 U/L (0-35); SODIUM 139 mmol/L (137-145); Total Protein 8.6 g/dL (6.3-8.2)
[2018-08-27 13:06] LABS: INFLUENZA A NEGATIVE (NEGATIVE); INFLUENZA B NEGATIVE (NEGATIVE); RESPIRATORY SYNCTIAL VIRUS NEGATIVE (Negative)
[2018-08-27 13:51] LABS: BAND 5 % (0.0-2.0); Lymphocytes 14 % (24-44); Monocyte 4 % (0.0-12.0); Neutrophils 77 % (36.0-66.0); Total Cells Counted 100
[2018-08-27] MEDS: DUONEB 0.5-3 MG/3 ml Neb IH SCH ×2 (13:51→19:52)
[2018-08-27 13:52] LABS: Platelet Estimate NORMAL (NORMAL)
[2018-08-27 13:53] LABS: Granulocyte Absolute (ANC) 10.09 (1.4-6.9)
[2018-08-27] MEDS: ROCEPHIN 1 Gm-D5w 50 ml Bag** 1 G/50 ML IVPB IV SCH (14:42)
[2018-08-27] MEDS ORDERED: FIBER PEG SCH (16:00)
[2018-08-27] MEDS ORDERED: LACTOSE REDUCED FOOD PEG SCH (16:00)
[2018-08-27] MEDS ORDERED: Zofran 4 MG/2 ML VIAL IV PRN (16:13)
[2018-08-27 16:26] LABS: AMYLASE 78 U/L (30-110); LIPASE 189 U/L (23-300)
[2018-08-27] MEDS: D5W/0.45NS W/ 20mEq KCl 1000 ML 1,000 ML IV SCH (16:32)
[2018-08-27] MEDS: Zithromax 500 MG/ 250 ML NaCl Premix 500 MG/250 ML IVPB IV SCH (16:52)
[2018-08-27] MEDS: Zanaflex 4 MG PEG SCH ×2 (16:53→22:49)
[2018-08-27] MEDS: LIORESAL 10 MG PEG SCH ×3 (16:53→23:59)
[2018-08-27] MEDS: PATIENT OWN MEDICATION PEG SCH ×4 (18:55→23:14)
[2018-08-27] MEDS ORDERED: METHENAMINE HIPPURATE 1 GM PEG SCH (22:00)
[2018-08-27] MEDS: PATIENT OWN MEDICATION PEG PRN (22:51)
[2018-08-28] MEDS: DUONEB 0.5-3 MG/3 ml Neb IH SCH ×4 (01:26→20:16)
[2018-08-28] MEDS: D5W/0.45NS W/ 20mEq KCl 1000 ML 1,000 ML IV SCH ×3 (02:42→23:02)
[2018-08-28] MEDS: LIORESAL 10 MG PEG SCH ×6 (05:05→22:40)
[2018-08-28] MEDS: PATIENT OWN MEDICATION PEG SCH ×9 (05:05→22:42)
--- NOTE | 2018-08-28 08:18 | PCM.NOTE ---
Date and Time: 08/28/18815 Subjective Assessment: fallon muro had a large amount of mucous nasally suctioned and seems to be doing better now. no vomiting overnight. Objective Exam General Appearance: no apparent distress Skin Exam: normal color, warm, dry Respiratory Exam: rhonchi Cardiovascular Exam: regular rate/rhythm, normal heart sounds Gastrointestinal/Abdomen Exam: soft, No tenderness, No mass Extremity Exam: other (severe contortion of spine and contractures) OBJECTIVE DATA Vital Signs: Vital Signs - 24 hr Temp Pulse Resp BP BP Pulse Ox 08/28/18 07:37 115 H 28 H 90 L 08/28/18 07:33 99.1 F 115 H 28 H 177/99 90 L 08/28/18 04:00 97.8 F 93 H 22 135/75 90 L 08/28/18 01:27 96 H 26 H 90 L 08/28/18 00:00 101 F 102 H 28 H 112/65 90 L 08/27/18 20:00 100.2 F 141 H 36 H 178/100 174/125 94 L 08/27/18 19:57 141 H 38 H 93 L 08/27/18 16:00 99.1 F 131 H 26 H 189/115 94 L 08/27/18 14:03 99 08/27/18 14:00 96 H 24 99 08/27/18 12:00 98.3 F 100 H 26 H 132/96 100 Pain Assessment - Last Documented Pain Scale Used 0-10 Pain Scale Intake and Output: Intake & Output 08/25/18 08/26/18 08/27/18 08/28/18 11:59 11:59 11:59 11:59 Intake Total 1485 Output Total 850 Balance 635 Weight 50.5 kg Lab Results: Lab Results-Last 24 Hours 08/27/18 08/27/18 08/27/18 Range/Units 11:15 11:50 11:50 WBC 12.0 H (4.0-10.5) K/mm3 RBC 4.64 (4.1-5.4) M/mm3 Hgb 14.5 (12.0-16.0) gm/dl Hct 43.2 (35-47) % MCV 93.1 (78-100) fl MCH 31.3 (26-32) pg MCHC 33.6 (32-36) g/dl RDW 12.5 (11.5-14.0) % Plt Count 263 (150-450) K/mm3 MPV 10.7 H (6-9.5) fl Absolute Granulocytes 10.09 H (1.4-6.9) Segmented Neutrophils 77 H (36.0-66.0) % Band Neutrophils 5 H (0.0-2.0) % Lymphocytes (Manual) 14 L (24-44) % Monocytes (Manual) 4 (0.0-12.0) % Platelet Estimate NORMAL (NORMAL) RBC Morphology NORMAL Sodium 139 (137-145) mmol/L Potassium 4.3 (3.5-5.1) mmol/L Chloride 103 (98-107) mmol/L Carbon Dioxide 28 (22-30) mmol/L Anion Gap 13.3 (5-15) MEQ/L BUN 8 (7-17) mg/dL Creatinine 0.25 L (0.52-1.04) mg/dL Estimated GFR > 60.0 ML/MIN Glucose 90 (74-106) mg/dL Lactic Acid 0.9 (0.4-2.0) Calcium 9.7 (8.4-10.2) mg/dL Total Bilirubin 0.60 (0.2-1.3) mg/dL AST 23 (14-36) U/L ALT 24 (0-35) U/L Alkaline Phosphatase 166 H (38-126) U/L Serum Total Protein 8.6 H (6.3-8.2) g/dL Albumin 4.5 (3.5-5.0) g/dL Amylase (30-110) U/L Lipase (23-300) U/L Influenza Type A Ag (NEGATIVE) Influenza Type B Ag (NEGATIVE) RSV (PCR) (Negative) 08/27/18 08/27/18 Range/Units 11:50 Unknown WBC (4.0-10.5) K/mm3 RBC (4.1-5.4) M/mm3 Hgb (12.0-16.0) gm/dl Hct (35-47) % MCV (78-100) fl MCH (26-32) pg MCHC (32-36) g/dl RDW (11.5-14.0) % Plt Count (150-450) K/mm3 MPV (6-9.5) fl Absolute Granulocytes (1.4-6.9) Segmented Neutrophils (36.0-66.0) % Band Neutrophils (0.0-2.0) % Lymphocytes (Manual) (24-44) % Monocytes (Manual) (0.0-12.0) % Platelet Estimate (NORMAL) RBC Morphology Sodium (137-145) mmol/L Potassium (3.5-5.1) mmol/L Chloride (98-107) mmol/L Carbon Dioxide (22-30) mmol/L Anion Gap (5-15) MEQ/L BUN (7-17) mg/dL Creatinine (0.52-1.04) mg/dL Estimated GFR ML/MIN Glucose (74-106) mg/dL Lactic Acid (0.4-2.0) Calcium (8.4-10.2) mg/dL Total Bilirubin (0.2-1.3) mg/dL AST (14-36) U/L ALT (0-35) U/L Alkaline Phosphatase (38-126) U/L Serum Total Protein (6.3-8.2) g/dL Albumin (3.5-5.0) g/dL Amylase 78 (30-110) U/L Lipase 189 (23-300) U/L Influenza Type A Ag NEGATIVE (NEGATIVE) Influenza Type B Ag NEGATIVE (NEGATIVE) RSV (PCR) NEGATIVE (Negative) Radiology Exams: Radiology Procedures Category Date Time Status CHEST 1 VIEW (PORTABLE) Routine Exams 08/27/18 11:15 Completed Multi-Disciplinary Progress Notes: Multi-Disciplinary Progress Notes 08/27/18 22:35 Respiratory Note by Lefty Ruelas NURSING CALLED TO REQUEST SUCTIONING FOR PT SHE HAD BEEN COUGHING AND THEY NOTICED SHE WAS BLOWING SOMETHING OUT OF HER NOSE. I OBTAINED A 14F SUCTION CATH AND PROCEEDED TO SUCTION ORALLY AND THEN NASAL. PT SATS PRE SUCTION WERE 90%, POST SUCTION THEY WERE 95%. PT CONTINUES TO COUGH AND GAG AT TIMES. CHASSIS DRIVER AND I READJUSTED PT IN BED AND PROPPED HER HEAD UP MORE. INFORMED NURSING OF INFO. Initialized on 08/27/18 22:35 - END OF NOTE Assessment/Plan (1) Pneumonia Current Visit: Yes Status: Acute Assessment & Plan: continue rocephin/zithromax, nebs and supportive tx at this time. chest xray with minimal findings but clinically has pneumonia Code(s): J18.9 - PNEUMONIA, UNSPECIFIED ORGANISM (2) Vomiting Current Visit: Yes Status: Acute Assessment & Plan: resolved, resume tube feeds at 20mL/hr, will advance if tolerates Code(s): R11.10 - VOMITING, UNSPECIFIED
[2018-08-28] MEDS ORDERED: ZOLOFT 50 MG TABLET PEG SCH (10:00)
[2018-08-28] MEDS ORDERED: ECOTRIN 81 MG PO SCH (10:00)
[2018-08-28] MEDS ORDERED: Flonase NASAL NS SCH (10:00)
[2018-08-28] MEDS: NORVASC 5 MG PEG SCH (10:14)
[2018-08-28] MEDS: Zithromax 500 MG/ 250 ML NaCl Premix 500 MG/250 ML IVPB IV SCH (10:14)
[2018-08-28] MEDS: ROCEPHIN 1 Gm-D5w 50 ml Bag** 1 G/50 ML IVPB IV SCH (10:14)
[2018-08-28] MEDS: Zanaflex 4 MG PEG SCH ×3 (10:15→22:41)
[2018-08-28] MEDS: BABY ASPIRIN 81 MG CHEW PEG SCH (10:16)
[2018-08-28] MEDS: PATIENT OWN MEDICATION NS SCH (10:17)
[2018-08-28] MEDS: ENOXAPARIN SODIUM SQ SCH (13:07)
[2018-08-29] MEDS: DUONEB 0.5-3 MG/3 ml Neb IH SCH ×4 (01:13→19:26)
[2018-08-29] MEDS: LIORESAL 10 MG PEG SCH ×6 (04:22→23:58)
[2018-08-29 06:20] LABS: Hematocrit 40.9 % (35-47); Hemoglobin 13.6 gm/dl (12.0-16.0); Mean Cell Volume 94.5 fl (78-100); Mean Corpuscular Hemoglobin 31.4 pg (26-32); Mean Corpuscular Hgb Concent. 33.3 g/dl (32-36); Mean Platelet Volume 10.1 fl (6-9.5); Platelet Count 252 K/mm3 (150-450); Red Blood Count 4.33 M/mm3 (4.1-5.4); Red Cell Distribution Width 12.5 % (11.5-14.0)
[2018-08-29 06:21] LABS: ANION GAP 12.3 MEQ/L (5-15); BLOOD UREA NITROGEN 7 mg/dL (7-17); CHLORIDE 108 mmol/L (98-107); Calcium 9.3 mg/dL (8.4-10.2); Carbon Dioxide 26 mmol/L (22-30); Creatinine 1 0.25 mg/dL (0.52-1.04); Glucose 149 mg/dL (74-106); Potassium 4.6 mmol/L (3.5-5.1); SODIUM 141 mmol/L (137-145)
[2018-08-29] MEDS: PATIENT OWN MEDICATION PEG SCH ×9 (06:25→23:57)
--- NOTE | 2018-08-29 08:42 | PCM.NOTE ---
Date and Time: 08/29/18 0840 Subjective Assessment: aunt is present in room, states patient seems much better to her. she is smiling this morning, no vomiting overnight and cough seems improved Objective Exam General Appearance: no apparent distress Skin Exam: normal color, warm, dry Respiratory Exam: rhonchi (improved) Cardiovascular Exam: regular rate/rhythm, normal heart sounds Gastrointestinal/Abdomen Exam: soft, No tenderness, No mass Extremity Exam: normal inspection, normal range of motion OBJECTIVE DATA Vital Signs: Vital Signs - 24 hr Temp Pulse Resp BP Pulse Ox 08/29/18 07:26 121 H 24 96 08/29/18 07:23 99.5 F 121 H 26 H 172/95 96 08/29/18 04:00 99.9 F 112 H 26 H 153/84 95 08/29/18 01:13 105 H 22 94 L 08/29/18 00:00 23 08/28/18 23:21 98.6 F 101 H 23 134/76 90 L 08/28/18 20:16 92 H 23 90 L 08/28/18 20:00 98.5 F 82 23 125/66 91 L 08/28/18 16:00 98.7 F 87 25 H 93/51 90 L 08/28/18 13:58 88 24 90 L 08/28/18 12:00 99.7 F 78 24 100/56 90 L Pain Assessment - Last Documented Pain Scale Used 0-10 Pain Scale Intake and Output: Intake & Output 08/26/18 08/27/18 08/28/18 08/29/18 11:59 11:59 11:59 11:59 Intake Total 1485 3169 Output Total 850 2500 Balance 635 669 Weight 50.5 kg 50.5 kg Lab Results: Lab Results-Last 24 Hours 08/29/18 08/29/18 Range/Units 05:20 05:20 WBC 7.0 (4.0-10.5) K/mm3 RBC 4.33 (4.1-5.4) M/mm3 Hgb 13.6 (12.0-16.0) gm/dl Hct 40.9 (35-47) % MCV 94.5 (78-100) fl MCH 31.4 (26-32) pg MCHC 33.3 (32-36) g/dl RDW 12.5 (11.5-14.0) % Plt Count 252 (150-450) K/mm3 MPV 10.1 H (6-9.5) fl Sodium 141 (137-145) mmol/L Potassium 4.6 (3.5-5.1) mmol/L Chloride 108 H (98-107) mmol/L Carbon Dioxide 26 (22-30) mmol/L Anion Gap 12.3 (5-15) MEQ/L BUN 7 (7-17) mg/dL Creatinine 0.25 L (0.52-1.04) mg/dL Estimated GFR > 60.0 ML/MIN Glucose 149 H (74-106) mg/dL Calcium 9.3 (8.4-10.2) mg/dL Radiology Exams: Radiology Procedures Category Date Time Status CHEST 1 VIEW (PORTABLE) Routine Exams 08/27/18 11:15 Completed Assessment/Plan (1) Pneumonia Current Visit: Yes Status: Acute Assessment & Plan: on rocephin and zithromax, will resume full tube feeds today. if tolerates likely discharge home tomorrow. Code(s): J18.9 - PNEUMONIA, UNSPECIFIED ORGANISM (2) Vomiting Current Visit: Yes Status: Acute Code(s): R11.10 - VOMITING, UNSPECIFIED
[2018-08-29] MEDS: D5W/0.45NS W/ 20mEq KCl 1000 ML 1,000 ML IV SCH ×2 (09:32→21:36)
[2018-08-29] MEDS: ROCEPHIN 1 Gm-D5w 50 ml Bag** 1 G/50 ML IVPB IV SCH (09:47)
[2018-08-29] MEDS: Zithromax 500 MG/ 250 ML NaCl Premix 500 MG/250 ML IVPB IV SCH (09:47)
[2018-08-29] MEDS: Zanaflex 4 MG PEG SCH ×3 (09:47→22:15)
[2018-08-29] MEDS: ENOXAPARIN SODIUM SQ SCH (09:48)
[2018-08-29] MEDS: NORVASC 5 MG PEG SCH (09:48)
[2018-08-29] MEDS: BABY ASPIRIN 81 MG CHEW PEG SCH (09:52)
[2018-08-29] MEDS: PATIENT OWN MEDICATION NS SCH (09:55)
[2018-08-29 10:21] LABS: Eosinophil 4 % (0.00-3.0); Lymphocytes 24 % (24-44); Monocyte 5 % (0.0-12.0); Neutrophils 67 % (36.0-66.0); Platelet Estimate NORMAL (NORMAL); Total Cells Counted 100
[2018-08-29] MEDS ORDERED: Levofloxacin 500MG/100ML D5W 500 MG/100 ML BAG IV ONE (21:59)
[2018-08-30] MEDS: DUONEB 0.5-3 MG/3 ml Neb IH SCH ×2 (01:15→07:01)
[2018-08-30] MEDS: LIORESAL 10 MG PEG SCH ×2 (04:10→07:26)
[2018-08-30 04:22] VITALS: O2SAT 98
[2018-08-30] MEDS: PATIENT OWN MEDICATION PEG SCH ×4 (05:24→09:13)
[2018-08-30 05:52] LABS: Hematocrit 39.5 % (35-47); Hemoglobin 13.1 gm/dl (12.0-16.0); Mean Cell Volume 94.3 fl (78-100); Mean Corpuscular Hemoglobin 31.3 pg (26-32); Mean Corpuscular Hgb Concent. 33.2 g/dl (32-36); Mean Platelet Volume 10.1 fl (6-9.5); Platelet Count 272 K/mm3 (150-450); Red Blood Count 4.19 M/mm3 (4.1-5.4); Red Cell Distribution Width 12.4 % (11.5-14.0); White Blood Count 6.9 K/mm3 (4.0-10.5)
[2018-08-30 06:11] LABS: ALBUMIN 3.9 g/dL (3.5-5.0); ALKALINE PHOSPHATASE 126 U/L (38-126); ANION GAP 12.5 MEQ/L (5-15); BLOOD UREA NITROGEN 9 mg/dL (7-17); CHLORIDE 105 mmol/L (98-107); Calcium 9.4 mg/dL (8.4-10.2); Carbon Dioxide 28 mmol/L (22-30); Creatinine 1 0.32 mg/dL (0.52-1.04); Glucose 152 mg/dL (74-106); Potassium 4.5 mmol/L (3.5-5.1); SGOT/AST 18 U/L (14-36); SGPT/ALT 20 U/L (0-35); SODIUM 140 mmol/L (137-145); Total Protein 7.4 g/dL (6.3-8.2)
[2018-08-30 06:32] LABS: Lymphocytes 27 % (24-44); Monocyte 9 % (0.0-12.0); Neutrophils 64 % (36.0-66.0); Platelet Estimate NORMAL (NORMAL); Total Cells Counted 100
[2018-08-30] MEDS: PATIENT OWN MEDICATION PEG PRN (06:54)
[2018-08-30 07:21] VITALS: BP 192/98; PULSE 115
[2018-08-30] MEDS: D5W/0.45NS W/ 20mEq KCl 1000 ML 1,000 ML IV SCH (08:26)
--- NOTE | 2018-08-30 08:53 | PCM.NOTE ---
Date and Time: 08/30/18 0848 Subjective Assessment: patient doing well, no fever. tolerating tube feeds at regular rate. antibiotic changed yesterday based on urine culture. Objective Exam General Appearance: no apparent distress Neurologic Exam: alert Skin Exam: normal color, warm, dry Eye Exam: PERRL, EOMI, eyes nml inspection Respiratory Exam: rhonchi Cardiovascular Exam: regular rate/rhythm, normal heart sounds Gastrointestinal/Abdomen Exam: soft, No tenderness, No mass OBJECTIVE DATA Vital Signs: Vital Signs - 24 hr Temp Pulse Resp BP BP Pulse Ox 08/30/18 07:20 99.7 F 115 H 26 H 192/98 98 08/30/18 07:12 118 H 24 98 08/30/18 04:00 98.8 F 99 H 26 H 171/100 98 08/30/18 01:15 92 H 24 96 08/30/18 00:00 98.7 F 99 H 28 H 155/86 174/125 97 08/29/18 20:00 98.9 F 108 H 28 H 163/105 99 08/29/18 19:26 92 H 22 97 08/29/18 16:00 97.7 F 92 H 24 115/65 99 08/29/18 15:14 16 08/29/18 12:39 91 H 22 99 08/29/18 12:00 98.0 F 91 H 24 119/67 99 Pain Assessment - Last Documented Pain Scale Used 0-10 Pain Scale Intake and Output: Intake & Output 08/27/18 08/28/18 08/29/18 08/30/18 11:59 11:59 11:59 11:59 Intake Total 1485 3169 3419 Output Total 850 2500 3700 Balance 635 669 -281 Weight 50.5 kg 50.5 kg Lab Results: Lab Results-Last 24 Hours 08/29/18 08/30/18 08/30/18 Range/Units 05:20 05:40 05:40 WBC 6.9 (4.0-10.5) K/mm3 RBC 4.19 (4.1-5.4) M/mm3 Hgb 13.1 (12.0-16.0) gm/dl Hct 39.5 (35-47) % MCV 94.3 (78-100) fl MCH 31.3 (26-32) pg MCHC 33.2 (32-36) g/dl RDW 12.4 (11.5-14.0) % Plt Count 272 (150-450) K/mm3 MPV 10.1 H (6-9.5) fl Segmented Neutrophils 67 H 64 (36.0-66.0) % Lymphocytes (Manual) 24 27 (24-44) % Monocytes (Manual) 5 9 (0.0-12.0) % Eosinophils (Manual) 4 H (0.00-3.0) % Platelet Estimate NORMAL NORMAL (NORMAL) RBC Morphology NORMAL NORMAL Sodium 140 (137-145) mmol/L Potassium 4.5 (3.5-5.1) mmol/L Chloride 105 (98-107) mmol/L Carbon Dioxide 28 (22-30) mmol/L Anion Gap 12.5 (5-15) MEQ/L BUN 9 (7-17) mg/dL Creatinine 0.32 L (0.52-1.04) mg/dL Estimated GFR > 60.0 ML/MIN Glucose 152 H (74-106) mg/dL Calcium 9.4 (8.4-10.2) mg/dL Total Bilirubin 0.60 (0.2-1.3) mg/dL AST 18 (14-36) U/L ALT 20 (0-35) U/L Alkaline Phosphatase 126 (38-126) U/L Serum Total Protein 7.4 (6.3-8.2) g/dL Albumin 3.9 (3.5-5.0) g/dL Assessment/Plan (1) Pneumonia Current Visit: Yes Status: Acute Assessment & Plan: changed to levaquin based on urine culture, white count normalized, afebrile and not requiring supplemental oxygen. POA considering placement vs return to alf Code(s): J18.9 - PNEUMONIA, UNSPECIFIED ORGANISM (2) Vomiting Current Visit: Yes Status: Acute Code(s): R11.10 - VOMITING, UNSPECIFIED
[2018-08-30] MEDS: BABY ASPIRIN 81 MG CHEW PEG SCH (09:11)
[2018-08-30] MEDS: Zanaflex 4 MG PEG SCH (09:11)
[2018-08-30] MEDS: ENOXAPARIN SODIUM SQ SCH (09:11)
[2018-08-30] MEDS: PATIENT OWN MEDICATION NS SCH (09:12)
--- NOTE | 2018-08-30 09:18 | PCM.DS ---
Discharge Summary Date of Admission: 08/27/18 10:49 Admitting Physician: SHIV LUNDBERG Primary Care Provider: SHIV LUNDBERG Allergies Allergies Iodinated Contrast- Oral and IV Dye Adverse Reaction (Verified 03/28/18 18:38) Hospital Summary - Hospital Course Hospital Course: patient admitted from office with clinical pnemonia, chest xray perihilar infiltrates. was on rocephin/zithromax, changed to levaquin based on enterococcus in urine. she is afebrile, white count normal and tolerating tube feeds via PEG per home regimen. - Vitals & Intake/Output Vital Signs: Vital Signs Temperature 99.7 F 08/30/18 07:20 Pulse Rate 115 H 08/30/18 07:20 Respiratory Rate 26 H 08/30/18 07:20 Blood Pressure 192/98 08/30/18 07:20 O2 Sat by Pulse Oximetry 98 08/30/18 07:20 Intake & Output: Intake & Output 08/27/18 08/28/18 08/29/18 08/30/18 11:59 11:59 11:59 11:59 Intake Total 1485 3169 3419 Output Total 850 2500 3700 Balance 635 669 -281 Weight 50.5 kg 50.5 kg - Lab Result Diagrams: 08/30/18 05:40 08/30/18 05:40 Lab Results-Last 24 Hrs: Lab Results-Last 24 Hours 08/29/18 08/30/18 08/30/18 Range/Units 05:20 05:40 05:40 WBC 6.9 (4.0-10.5) K/mm3 RBC 4.19 (4.1-5.4) M/mm3 Hgb 13.1 (12.0-16.0) gm/dl Hct 39.5 (35-47) % MCV 94.3 (78-100) fl MCH 31.3 (26-32) pg MCHC 33.2 (32-36) g/dl RDW 12.4 (11.5-14.0) % Plt Count 272 (150-450) K/mm3 MPV 10.1 H (6-9.5) fl Segmented Neutrophils 67 H 64 (36.0-66.0) % Lymphocytes (Manual) 24 27 (24-44) % Monocytes (Manual) 5 9 (0.0-12.0) % Eosinophils (Manual) 4 H (0.00-3.0) % Platelet Estimate NORMAL NORMAL (NORMAL) RBC Morphology NORMAL NORMAL Sodium 140 (137-145) mmol/L Potassium 4.5 (3.5-5.1) mmol/L Chloride 105 (98-107) mmol/L Carbon Dioxide 28 (22-30) mmol/L Anion Gap 12.5 (5-15) MEQ/L BUN 9 (7-17) mg/dL Creatinine 0.32 L (0.52-1.04) mg/dL Estimated GFR > 60.0 ML/MIN Glucose 152 H (74-106) mg/dL Calcium 9.4 (8.4-10.2) mg/dL Total Bilirubin 0.60 (0.2-1.3) mg/dL AST 18 (14-36) U/L ALT 20 (0-35) U/L Alkaline Phosphatase 126 (38-126) U/L Serum Total Protein 7.4 (6.3-8.2) g/dL Albumin 3.9 (3.5-5.0) g/dL Micro Results-Entire Visit: Microbiology 08/27/18 11:50 Blood Culture - Preliminary Blood NO GROWTH TO DATE 08/27/18 11:50 Blood Culture - Preliminary Blood NO GROWTH TO DATE 08/27/18 15:30 Urine Culture - Final Catherized Enterococcus Faecalis - Procedures and Test Procedures and Tests throughout Hospitalization: Therapy Orders & Screens 08/27/18 11:15 Oxygen Nasal Cannula 2 lpm Comment: top keep sats >92% Diagnosis: PNE, dehydration Respiratory Nebulizer Q6H Comment: duonebs every 6 hrs Diagnosis: PNE,dehydration 08/27/18 13:59 Respiratory Therapy Assessment DAILY Comment: Diagnosis: PNEUMONIA/ DEHYDRATION Discharge Exam General Appearance: no apparent distress Respiratory Exam: rhonchi Gastrointestinal/Abdomen Exam: soft Extremity Exam: normal inspection, normal range of motion Final Diagnosis/Problem List - Final Discharge Diagnosis/Problem (1) Pneumonia Current Visit: Yes Status: Acute (2) UTI (urinary tract infection) Current Visit: No Status: Acute Assessment & Plan: levaquin x 5 more days (3) Vomiting Current Visit: Yes Status: Acute Assessment & Plan: resolved - Discharge Disposition: Home, Self-Care Condition: Stable Prescriptions: New Levofloxacin [Levaquin] 500 mg PEG DAILY #5 tablet Continue Aspirin EC 81 mg [Ecotrin 81 mg] 81 mg PEG DAILY Fluticasone Propionate [Flonase NASAL] 2 spray NS DAILY Sertraline HCl [Zoloft] 5 ml PEG DAILY Gabapentin [Neurontin] 5 ml PEG BID Diazepam 10 mg/2 ml Syringe [Valium 10 mg/2 ml Syringe] 5 mg PEG Q6H Methenamine Hippurate 1 gm PEG BID Amlodipine Besylate 5 mg [Norvasc 5 mg] 2.5 mg PEG DAILY Nystatin Cream 15 gm [Nystop 15 gm Cream] 1 applic TOP DAILY PRN PRN PRN Reason: Redness/Irritation Zinc Oxide Ointment 30 gm 1 applic TOP DAILY PRN PRN PRN Reason: Redness/Irritation Acetaminophen [Mapap] 10 ml PEG Q4H PRN PRN PRN Reason: Fever Hydrocodone Bit/Acetaminophen [Hydrocodon-Acetaminophen 5-325] 10 ml PEG Q6H PRN PRN PRN Reason: Pain Lactose-Reduced Food/Fiber [Jevity 1.2 Oscar Liquid] 1,000 ml PEG UD Tizanidine HCl 4 mg [Zanaflex 4 MG] 4 mg PEG TID Baclofen 20 mg PEG Q4H Omeprazole 40 mg PEG DAILY Guaifen/Dextromethorphan/PE [Robafen Cf Liquid] 118 ml PO Q4H Follow up with: SHIV LUNDBERG MD [Primary Care Provider] - 1 Week
[2018-08-30] MEDS ORDERED: NORVASC 5 MG PEG SCH (10:00)
[2018-08-30] MEDS ORDERED: Levofloxacin 500MG/100ML D5W 500 MG/100 ML BAG IV SCH ×2 (13:00→22:00)
== END 2018-08-30 10:30 | disposition home or self-care (01) | DRG 194 ==
LOC: MED SURG 10:49
PROVIDERS: ADMIT Family Medicine; ATTEND Family Medicine
DX: J18.9 Pneumonia, unspecified organism (principal); N39.0 Urinary tract infection, site not specified; E86.0 Dehydration; R11.10 Vomiting, unspecified; R09.02 Hypoxemia; Z79.899 Other long term (current) drug therapy
CPT/HCPCS: 36415; 71045; 80048; 80053; 82150; 83605; 83690; 85025; 87040; 87077; 87086; 87186; 87631; 94640; 94760; J0456; J0696; J1650; J1956; J2405; A9270-GY

== ENCOUNTER 2018-09-23 10:36 | Inpatient (IN) | payer MEDICARE ==
--- NOTE | 2018-09-23 10:43 | ERPHSYRPT ---
- History of Present Illness Time Seen by Provider: 09/23/18 10:43 Source: family Exam Limitations: clinical condition, physical impairment Physician History: 48 y/o nonverbal, contracted, nonambulatory white female with profound mental retardation and scoliosis presents with increasing weakness and mental status jacket changer 3 days. pt has a gastrostomy tube in place. pt is DNR. Timing/Duration: day(s) (3) Severity: moderate Modifying Factors: Improves With: nothing Associated Symptoms: malaise, weakness, No nausea, No vomiting, No abdominal pain, No diaphoresis, No cough Allergies/Adverse Reactions: Iodinated Contrast- Oral and IV Dye Adverse Reaction (Verified 03/28/18 18:38) Home Medications: Aspirin EC 81 mg [Ecotrin 81 mg] 81 mg PEG DAILY 04/09/13 [History] Fluticasone Propionate [Flonase NASAL] 2 spray NS DAILY 04/09/13 [History] Gabapentin [Neurontin] 5 ml PEG BID 04/09/13 [History] Sertraline HCl [Zoloft] 5 ml PEG DAILY 04/09/13 [History] Acetaminophen [Mapap] 10 ml PEG Q4H PRN PRN 05/01/14 [History] Amlodipine Besylate 5 mg [Norvasc 5 mg] 2.5 mg PEG DAILY 05/01/14 [History ] Diazepam 10 mg/2 ml Syringe [Valium 10 mg/2 ml Syringe] 5 mg PEG Q6H [History] Hydrocodone Bit/Acetaminophen [Hydrocodon-Acetaminophen 5-325] 10 ml PEG Q6H PRN PRN 05/01/14 [History] Methenamine Hippurate 1 gm PEG BID 05/01/14 [History] Nystatin Cream 15 gm [Nystop 15 gm Cream] 1 applic TOP DAILY PRN PRN 05/01 [History] Zinc Oxide Ointment 30 gm 1 applic TOP DAILY PRN PRN 05/01/14 [History] Lactose-Reduced Food/Fiber [Jevity 1.2 Oscar Liquid] 1,000 ml PEG UD 05/04/15 [ History] Tizanidine HCl 4 mg [Zanaflex 4 MG] 4 mg PEG TID 11/05/15 [History] Baclofen 20 mg PEG Q4H 12/24/16 [History] Guaifen/Dextromethorphan/PE [Robafen Cf Liquid] 118 ml PO Q4H 08/27/18 [History] Omeprazole 40 mg PEG DAILY 08/27/18 [History] Hx Tetanus, Diphtheria Vaccination/Date Given: No Hx Influenza Vaccination/Date Given: (unknown) Hx Pneumococcal Vaccination/Date Given: (unknown) - Review of Systems Constitutional: Weakness Eyes: No Symptoms Ears, Nose, & Throat: No Symptoms Respiratory: No Symptoms Cardiac: No Symptoms Abdominal/Gastrointestinal: No Symptoms Genitourinary Symptoms: No Symptoms Musculoskeletal: No Symptoms Neurological: Other (mental status change) Endocrine: No Symptoms Hematologic/Lymphatic: No Symptoms Immunological/Allergic: No Symptoms All Other Systems: Reviewed and Negative - Past Medical History Pertinent Past Medical History: No Neurological History: No Pertinent History ENT History: No Pertinent History Cardiac History: Hypertension Respiratory History: No Pertinent History Endocrine Medical History: No Pertinent History Musculoskeletal History: No Pertinent History GI Medical History: No Pertinent History History: No Pertinent History Psycho-Social History: Anxiety Female Reproductive Disorders: No Pertinent History Other Medical History: PT. IS PROFOUND MENTAL RETARDATION LIVES AT [facility] - Past Surgical History Past Surgical History: No Neuro Surgical History: No Pertinent History Cardiac: No Pertinent History Respiratory: No Pertinent History Gastrointestinal: No Pertinent History Genitourinary: Kidney Surgery Musculoskeletal: No Pertinent History Female Surgical History: No Pertinent History Other Surgical History: PT. HAS PROFOUND MENTAL RETARDATION LIVES AT [facility] - Social History Smoking Status: Never smoker Exposure to second hand smoke: Yes Drug Use: none Patient Lives Alone: No - Nursing Vital Signs Nursing Vital Signs: Initial Vital Signs Temperature 96.7 F 09/23/18 11:01 Pulse Rate 81 09/23/18 11:01 Respiratory Rate 14 09/23/18 11:01 Blood Pressure 147/112 09/23/18 11:01 O2 Sat by Pulse Oximetry 97 09/23/18 11:01 Pain Scale Pain Intensity 0 - Physical Exam General Appearance: lethargy Eye Exam: PERRL/EOMI, eyes nml inspection Ears, Nose, Throat Exam: dry mucous membranes Neck Exam: normal inspection Respiratory Exam: normal breath sounds, lungs clear, airway intact Cardiovascular Exam: regular rate/rhythm, normal heart sounds Gastrointestinal/Abdomen Exam: soft, normal bowel sounds Pelvic Exam: not done Rectal Exam: not done Back Exam: normal inspection, normal range of motion, No CVA tenderness, No vertebral tenderness Extremity Exam: normal inspection, normal range of motion, pelvis stable Neurologic Exam: alert Skin Exam: normal color, warm, dry Lymphatic Exam: No adenopathy SpO2 Interpretation: normal O2 Delivery: Room Air - Course Nursing assessment & vital signs reviewed: Yes Ordered Tests: Active Orders 24 hr Category Date Time Status Clean Catch Urine Specimen STAT Care 09/23/18 11:00 Active IV Insertion STAT Care 09/23/18 11:00 Active CHEST 1 VIEW (PORTABLE) Stat Exams 09/23/18 11:05 Completed AMYLASE Stat Lab 09/23/18 11:10 Completed BLOOD CULTURE Stat Lab 09/23/18 11:20 Received CBC W DIFF Stat Lab 09/23/18 11:10 Completed CMP Stat Lab 09/23/18 11:10 Completed CULTURE,URINE Stat Lab 09/23/18 11:01 Received LIPASE Stat Lab 09/23/18 11:10 Completed Lactic Acid Stat Lab 09/23/18 11:12 Completed [place] Screen Stat Lab 09/23/18 Completed UA W/RFX UR CULTURE Stat Lab 09/23/18 11:01 Completed Transfer Order Routine Transfer 09/23/18 Ordered Medication Summary Discontinued Medications Generic Name Dose Route Start Last Admin Trade Name Freq PRN Reason Stop Dose Admin Sodium Chloride 1,000 mls @ 999 mls/hr 09/23/18 11:00 09/23/18 11:21 Sodium Chloride 0.9% 1000 Ml IV 09/23/18 12:00 999 mls/hr .Q1H1M STA Administration Sodium Chloride Confirm 09/23/18 11:16 Sodium Chloride 0.9% 1000 Ml Administered 09/23/18 11:17 Dose 1,000 mls @ ud .ROUTE .STK-MED ONE Ceftriaxone Sodium/Dextrose 1 g in 50 mls @ 100 mls/hr 09/23/18 12:11 12:54 Rocephin 1 Gm-D5w 50 Ml Bag IV 09/23/18 12:40 100 ml/hr STAT STA 100 mls/hr Administration Ceftriaxone Sodium/Dextrose Confirm 09/23/18 12:51 Rocephin 1 Gm-D5w 50 Ml Bag Administered 09/23/18 12:52 Dose 1 g in 50 mls @ ud IV .STK-MED ONE Lab/Rad Data: Laboratory Result Diagrams 09/23/18 11:10 09/23/18 11:10 Laboratory Results 09/23/18 09/23/18 09/23/18 Range/Units Unknown 11:39 11:12 WBC (4.0-10.5) K/mm3 RBC (4.1-5.4) M/mm3 Hgb (12.0-16.0) gm/dl Hct (35-47) % MCV (78-100) fl MCH (26-32) pg MCHC (32-36) g/dl RDW (11.5-14.0) % Plt Count (150-450) K/mm3 MPV (6-9.5) fl Gran % (36.0-66.0) % Eos # (Auto) (0-0.5) Absolute Lymphs (auto) (1.0-4.6) Absolute Monos (auto) (0.0-1.3) Lymphocytes % (24.0-44.0) % Monocytes % (0.0-12.0) % Eosinophils % (0.00-5.0) % Basophils % (0.0-0.4) % Absolute Granulocytes (1.4-6.9) Basophils # (0-0.4) Sodium (137-145) mmol/L Potassium (3.5-5.1) mmol/L Chloride (98-107) mmol/L Carbon Dioxide (22-30) mmol/L Anion Gap (5-15) MEQ/L BUN (7-17) mg/dL Creatinine (0.52-1.04) mg/dL Estimated GFR ML/MIN Glucose (74-106) mg/dL Lactic Acid 0.9 (0.4-2.0) Calcium (8.4-10.2) mg/dL Total Bilirubin (0.2-1.3) mg/dL AST (14-36) U/L ALT (0-35) U/L Alkaline Phosphatase (38-126) U/L Serum Total Protein (6.3-8.2) g/dL Albumin (3.5-5.0) g/dL Amylase (30-110) U/L Lipase (23-300) U/L Urine Color (YELLOW) Urine Appearance (CLEAR) Urine pH (5-6) Ur Specific Convoy (1.005-1.025) Urine Protein (Negative) Urine Ketones (NEGATIVE) Urine Blood (0-5) Saqib/ul Urine Nitrite (NEGATIVE) Urine Bilirubin (NEGATIVE) Urine Urobilinogen (0-1) mg/dL Ur Leukocyte Esterase (NEGATIVE) Urine WBC (Auto) (0-5) /HPF Urine RBC (Auto) (0-2) /HPF U Epithel Cells (Auto) (FEW) /HPF Urine Bacteria (Auto) (NEGATIVE) /HPF U Non-Squamous Epi Cells (FEW) /HPF Urine Culture Reflexed (NO) Urine Glucose (NEGATIVE) mg/dL Monoscreen NEGATIVE (Negative) Influenza Type A Ag NEGATIVE (NEGATIVE) Influenza Type B Ag NEGATIVE (NEGATIVE) RSV (PCR) NEGATIVE (Negative) Group A Strep Antibody NEGATIVE (NEGATIVE) 09/23/18 09/23/18 09/23/18 Range/Units 11:10 11:10 11:01 WBC 9.5 (4.0-10.5) K/mm3 RBC 3.92 L (4.1-5.4) M/mm3 Hgb 12.3 (12.0-16.0) gm/dl Hct 38.2 (35-47) % MCV 97.4 (78-100) fl MCH 31.3 (26-32) pg MCHC 32.2 (32-36) g/dl RDW 12.5 (11.5-14.0) % Plt Count 216 (150-450) K/mm3 MPV 9.9 H (6-9.5) fl Gran % 70.9 H (36.0-66.0) % Eos # (Auto) 0.66 H (0-0.5) Absolute Lymphs (auto) 1.18 (1.0-4.6) Absolute Monos (auto) 0.87 (0.0-1.3) Lymphocytes % 12.5 L (24.0-44.0) % Monocytes % 9.2 (0.0-12.0) % Eosinophils % 7.0 H (0.00-5.0) % Basophils % 0.4 (0.0-0.4) % Absolute Granulocytes 6.71 (1.4-6.9) Basophils # 0.04 (0-0.4) Sodium 143 (137-145) mmol/L Potassium 4.8 (3.5-5.1) mmol/L Chloride 106 (98-107) mmol/L Carbon Dioxide 27 (22-30) mmol/L Anion Gap 14.7 (5-15) MEQ/L BUN 79 H (7-17) mg/dL Creatinine 1.80 H (0.52-1.04) mg/dL Estimated GFR 31.8 ML/MIN Glucose 196 H (74-106) mg/dL Lactic Acid (0.4-2.0) Calcium 9.7 (8.4-10.2) mg/dL Total Bilirubin 0.40 (0.2-1.3) mg/dL AST 24 (14-36) U/L ALT 21 (0-35) U/L Alkaline Phosphatase 145 H (38-126) U/L Serum Total Protein 8.4 H (6.3-8.2) g/dL Albumin 4.0 (3.5-5.0) g/dL Amylase 83 (30-110) U/L Lipase 265 (23-300) U/L Urine Color YELLOW (YELLOW) Urine Appearance SLIGHTLY CLOUDY (CLEAR) Urine pH 8.0 (5-6) Ur Specific [place] 1.011 (1.005-1.025) Urine Protein 30 (Negative) Urine Ketones NEGATIVE (NEGATIVE) Urine Blood SMALL (0-5) Saqib/ul Urine Nitrite NEGATIVE (NEGATIVE) Urine Bilirubin NEGATIVE (NEGATIVE) Urine Urobilinogen NEGATIVE (0-1) mg/dL Ur Leukocyte Esterase LARGE (NEGATIVE) Urine WBC (Auto) 51-100 (0-5) /HPF Urine RBC (Auto) 16-25 (0-2) /HPF U Epithel Cells (Auto) RARE (FEW) /HPF Urine Bacteria (Auto) NONE (NEGATIVE) /HPF U Non-Squamous Epi Cells RARE (FEW) /HPF Urine Culture Reflexed YES (NO) Urine Glucose 50 (NEGATIVE) mg/dL Monoscreen (Negative) Influenza Type A Ag (NEGATIVE) Influenza Type B Ag (NEGATIVE) RSV (PCR) (Negative) Group A Strep Antibody (NEGATIVE) - Progress Progress: unchanged Progress Note: 09/23/18 12:21 cxr-new diffuse left lung airspace dz. 09/23/18 13:[address] granger. he is covering for dr. lundberg. i reviewed pt hx, condition, lab and xray results with him. he accepts pt for observation Discussed with Dr.: Other (Gino covering for dr. lundberg) Counseled pt/family regarding: lab results, diagnosis, need for follow-up - Departure Time of Disposition: 13:03 Departure Disposition: Observation Clinical Impression: UTI (urinary tract infection), Pneumonia involving left lung, Dehydration Condition: Fair Critical Care Time: No Referrals: SHIV LUNDBERG MD [Primary Care Provider] -
[2018-09-23] MEDS ORDERED: Sodium Chloride 0.9% 1000 ML 1,000 ML IV STA (11:00)
[2018-09-23] MEDS ORDERED: Sodium Chloride 0.9% 1000 ML 1,000 ML ONE (11:16)
--- NOTE | 2018-09-23 11:25 | XRAY ---
Indication: Weakness. Mental status change. Comparison: August 27, 2018. Portable supine chest remains underinflated with new diffuse left lung airspace disease without consolidation/large effusion. Remaining heart and right lung unremarkable. Bony thorax intact again with scoliosis.
[2018-09-23 11:26] LABS: BASOPHIL % 0.4 % (0.0-0.4); Basophil (Absolute #) 0.04 (0-0.4); Eosinophil (Absolute #) 0.66 (0-0.5); Granulocyte Absolute (ANC) 6.71 (1.4-6.9); Granulocytes % 70.9 % (36.0-66.0); Hematocrit 38.2 % (35-47); Hemoglobin 12.3 gm/dl (12.0-16.0); Lymphocyte (Absolute #) 1.18 (1.0-4.6); Lymphocytes % 12.5 % (24.0-44.0); Mean Cell Volume 97.4 fl (78-100); Mean Corpuscular Hgb Concent. 32.2 g/dl (32-36); Mean Platelet Volume 9.9 fl (6-9.5); Monocyte (Absolute #) 0.87 (0.0-1.3); Monocytes % 9.2 % (0.0-12.0); Platelet Count 216 K/mm3 (150-450); Red Blood Count 3.92 M/mm3 (4.1-5.4); Red Cell Distribution Width 12.5 % (11.5-14.0); White Blood Count 9.5 K/mm3 (4.0-10.5)
[2018-09-23 11:28] LABS: Mean Corpuscular Hemoglobin 31.3 pg (26-32)
[2018-09-23 11:36] LABS: Appearance SLIGHTLY CLOUDY (CLEAR); Bilirubin NEGATIVE (NEGATIVE); Blood SMALL Ery/ul (0-5); Epithelial Cells RARE /HPF (FEW); Glucose 50 mg/dL (NEGATIVE); Ketones NEGATIVE (NEGATIVE); Leukocyte Esterase LARGE (NEGATIVE); Nitrite NEGATIVE (NEGATIVE); Non-Squamous Epithelial Cells RARE /HPF (FEW); Protein,Urine Dip 30 (Negative); Specific Gravity 1.011 (1.005-1.025); Urobilinogen NEGATIVE mg/dL (0-1); WBC 51-100 /HPF (0-5)
[2018-09-23 11:39] LABS: ANION GAP 14.7 MEQ/L (5-15); BILIRUBIN,TOTAL 0.4 mg/dL (0.2-1.3); Calcium 9.7 mg/dL (8.4-10.2); Creatinine 1 1.8 mg/dL (0.52-1.04); Potassium 4.8 mmol/L (3.5-5.1); Total Protein 8.4 g/dL (6.3-8.2)
[2018-09-23] MEDS ORDERED: ROCEPHIN 1 Gm-D5w 50 ml Bag** 1 G/50 ML IVPB IV STA (12:11)
[2018-09-23 12:24] LABS: Group A Strep NEGATIVE (NEGATIVE); INFLUENZA A NEGATIVE (NEGATIVE); INFLUENZA B NEGATIVE (NEGATIVE); RESPIRATORY SYNCTIAL VIRUS NEGATIVE (Negative)
[2018-09-23] MEDS ORDERED: ROCEPHIN 1 Gm-D5w 50 ml Bag** 1 G/50 ML IVPB IV ONE (12:51)
[2018-09-23] MEDS ORDERED: TYLENOL 325 MG PO PRN (13:27)
[2018-09-23] MEDS ORDERED: Sodium Chloride 0.9% 1000 ML 1,000 ML IV SCH (13:27)
[2018-09-23] MEDS ORDERED: PHARMACY DOSING REQUEST MC ONE (13:45)
[2018-09-23] MEDS: Valium 5 MG PEG SCH ×2 (17:01→21:34)
[2018-09-23] MEDS ORDERED: APRESOLINE 20 MG/ML INJ IV ONE (18:04)
[2018-09-23] MEDS: Sodium Chloride 0.9% 1000 ML 1,000 ML IV SCH (19:52)
[2018-09-23] MEDS ORDERED: Neurontin 100 MG PEG ONE (20:00)
[2018-09-23] MEDS: Zosyn 3.375GM/100 Ml D5W 3.375 GM/100 ML IVPB IV SCH (20:19)
[2018-09-23] MEDS: APRESOLINE 20 MG/ML INJ IV PRN (20:24)
[2018-09-23] MEDS ORDERED: NYSTOP OINTMENT 15 GM TOP PRN (20:53)
[2018-09-23] MEDS ORDERED: LIORESAL 10 MG ONE (21:20)
[2018-09-23] MEDS: LIORESAL 10 MG PEG SCH (21:32)
[2018-09-23] MEDS: MORPHINE SULFATE 4 MG INJ IV PRN (22:42)
[2018-09-23 23:23] LABS: VBG BASE EXCESS -0.7 (-2.0-2.0); VBG CARBOXYHEMOGLOBIN 2.7 % T HGB (0.0-6.9); VBG HCO3- 23.4 meq/L (22-28); VBG HEMOGLOBIN 12.9; VBG O2 SATURATION 96.9 (95-100); VBG POTASSIUM 4.5 (3.5-5.1); VBG pH 7.42 (7.32-7.42)
[2018-09-23 23:24] LABS: Hematocrit 38.5 % (35-47); Hemoglobin 12.5 gm/dl (12.0-16.0); Mean Cell Volume 95.8 fl (78-100); Mean Corpuscular Hgb Concent. 32.5 g/dl (32-36); Mean Platelet Volume 9.6 fl (6-9.5); Platelet Count 201 K/mm3 (150-450); Red Blood Count 4.02 M/mm3 (4.1-5.4); Red Cell Distribution Width 12.5 % (11.5-14.0); White Blood Count 11.5 K/mm3 (4.0-10.5)
[2018-09-23 23:43] LABS: ALBUMIN 3.8 g/dL (3.5-5.0); ANION GAP 14.5 MEQ/L (5-15); BILIRUBIN,TOTAL 0.5 mg/dL (0.2-1.3); Calcium 9.5 mg/dL (8.4-10.2); Creatinine 1 1.66 mg/dL (0.52-1.04); Potassium 4.7 mmol/L (3.5-5.1); Total Protein 7.9 g/dL (6.3-8.2)
[2018-09-24 00:17] LABS: INR 1.2 (0.8-3.0)
[2018-09-24] MEDS ORDERED: LIORESAL 10 MG ONE (00:40)
[2018-09-24] MEDS: Zanaflex 4 MG PEG SCH ×4 (00:46→17:21)
[2018-09-24] MEDS: LIORESAL 10 MG PEG SCH ×5 (00:49→21:59)
[2018-09-24] MEDS: Zosyn 3.375GM/100 Ml D5W 3.375 GM/100 ML IVPB IV SCH ×5 (01:09→23:10)
[2018-09-24] MEDS: MORPHINE SULFATE 4 MG INJ IV PRN ×3 (04:16→17:27)
[2018-09-24 06:04] LABS: BASOPHIL % 0.4 % (0.0-0.4); Basophil (Absolute #) 0.03 (0-0.4); Eosinophil % 3.7 % (0.00-5.0); Granulocyte Absolute (ANC) 5.72 (1.4-6.9); Granulocytes % 69.6 % (36.0-66.0); Hematocrit 40.3 % (35-47); Hemoglobin 12.7 gm/dl (12.0-16.0); Lymphocytes % 18.3 % (24.0-44.0); Mean Cell Volume 97.1 fl (78-100); Mean Corpuscular Hemoglobin 30.6 pg (26-32); Mean Corpuscular Hgb Concent. 31.5 g/dl (32-36); Mean Platelet Volume 10.2 fl (6-9.5); Monocyte (Absolute #) 0.66 (0.0-1.3); Platelet Count 226 K/mm3 (150-450); Red Blood Count 4.15 M/mm3 (4.1-5.4); White Blood Count 8.2 K/mm3 (4.0-10.5)
[2018-09-24] MEDS: Sodium Chloride 0.9% 1000 ML 1,000 ML IV SCH ×3 (06:15→22:52)
[2018-09-24 06:23] LABS: ANION GAP 13.1 MEQ/L (5-15); Calcium 9.6 mg/dL (8.4-10.2); Creatinine 1 1.5 mg/dL (0.52-1.04); Potassium 4.5 mmol/L (3.5-5.1)
[2018-09-24] MEDS ORDERED: Zosyn 3.375GM/100 Ml D5W 3.375 GM/100 ML IVPB IV ONE (06:32)
[2018-09-24] MEDS ORDERED: Zanaflex 4 MG ONE (06:32)
[2018-09-24] MEDS ORDERED: TYLENOL SUSPENSION 160 MG/5 ML PO PRN (06:37)
[2018-09-24] MEDS ORDERED: ZINC OXIDE OINTMENT 30 GM TP PRN (06:45)
[2018-09-24] MEDS: Valium 5 MG PEG SCH ×3 (07:25→22:01)
[2018-09-24] MEDS: NORVASC 5 MG PEG SCH (07:27)
[2018-09-24] MEDS: APRESOLINE 20 MG/ML INJ IV PRN ×2 (07:35→18:15)
[2018-09-24] MEDS: TYLENOL SUSPENSION 160 MG/5 ML PEG PRN ×3 (07:50→22:00)
[2018-09-24] MEDS: BABY ASPIRIN 81 MG CHEW PEG SCH (07:53)
[2018-09-24] MEDS: NON-FORMULARY ITEM PEG SCH ×3 (07:54→21:59)
[2018-09-24] MEDS: ZOLOFT 50 MG TABLET PEG SCH (08:00)
--- NOTE | 2018-09-24 08:48 | XRAY ---
Indication: Bowel distention. Comparison: CT abdomen/pelvis February 05, 2018. Supine and left lateral decubitus abdomen nonacute nonobstructed again with severe dextrorotoscoliosis, PEG tube, surgical clips, and right abdominal wall electronic device. Abdomen distention is similar without organomegaly, pathologic calcifications, or free air. Visualized lungs demonstrates diffuse bilateral interstitial alveolar opacities. Impression: 1. Nonacute nonobstructed abdomen again with chronic features. 2. Incidental bilateral interstitial alveolar opacities. Correlate clinically.
[2018-09-24] MEDS: ENOXAPARIN SODIUM SQ SCH (09:27)
[2018-09-24] MEDS ORDERED: Zithromax 500 MG/ 250 ML NaCl Premix 500 MG/250 ML IVPB IV SCH (10:00)
[2018-09-24] MEDS ORDERED: ROCEPHIN 1 Gm-D5w 50 ml Bag** 1 G/50 ML IVPB IV SCH (10:00)
--- NOTE | 2018-09-24 10:54 | PCM.HP ---
History of Present Illness - Chief Complaint Chief Complaint: pneumonia, uti History of Present Illness: is a 48 year old female with h/o cerebral palsy and anatomical deformity, chronic bed bound, non-verbal, h/o recurrent UTI presents with decreased mental alertness x 2 days. Due to pt's mental condition, all history is obtained thru medical chart and [facility]. Pt has been relatively well 4 days ago, but starts to be more somnolent on and brought to ED for evaluation. ED work-up shows left sided diffuse pulmonary infiltrate; lab shows acutely elevated Ct. Upon clinical examination, pt is in distress with tachycardia and very elevated BP readings. Pt remains somnolent not at her usual alertness mental state. IV morphine seems to ease pt's discomfort. Further lab evaluation overnight, pt's D-dimer is very elevated. US studies was done this morning and ruled out acute DVTs in b/l upper or lower extremities. No reports of fever, n/v/d, or bleeding by staff. - Review of Systems All Other Systems: Unable due to condition Medications & Allergies Home Medications: Home Medication List Aspirin EC 81 mg [Ecotrin 81 mg] 81 mg PEG DAILY 04/09/13 [History Confirmed 09/23/18] Gabapentin [Neurontin] 5 ml PEG BID 04/09/13 [History Confirmed 09/23/18] Sertraline HCl [Zoloft] 5 ml PEG DAILY 04/09/13 [History Confirmed 09/23/18] Acetaminophen [Mapap] 10 ml PEG Q4H PRN PRN 05/01/14 [History Confirmed 09/23/18 ] Amlodipine Besylate 5 mg [Norvasc 5 mg] 2.5 mg PEG DAILY 05/01/14 [ History Confirmed 09/23/18] Diazepam 10 mg/2 ml Syringe [Valium 10 mg/2 ml Syringe] 5 mg PEG Q6H [History Confirmed 09/23/18] Hydrocodone Bit/Acetaminophen [Hydrocodon-Acetaminophen 5-325] 10 ml PEG Q6H PRN PRN 05/01/14 [History Confirmed 09/23/18] Methenamine Hippurate 1 gm PEG BID 05/01/14 [History Confirmed 09/23/18] Nystatin Cream 15 gm [Nystop 15 gm Cream] 1 applic TOP DAILY PRN PRN 05/01 [History Confirmed 09/23/18] Zinc Oxide Ointment 30 gm 1 applic TOP DAILY PRN PRN 05/01/14 [History Confirmed 09/23/18] Tizanidine HCl 4 mg [Zanaflex 4 MG] 4 mg PEG Q6H 11/05/15 [History Confirmed 09/23/18] Baclofen 20 mg PEG Q4H 12/24/16 [History Confirmed 09/23/18] Omeprazole 40 mg PEG DAILY 08/27/18 [History Confirmed 09/23/18] Lactose-Reduced Food/Fiber [Jevity 1.2 Oscar Liquid] 1,000 ml PO UD 09/23/18 [ History Confirmed 09/23/18] Allergies/Adverse Reactions: Allergies Allergy/AdvReac Type Severity Reaction Status Date / Time Iodinated Contrast- Oral and AdvReac Verified 09/23/18 13:04 IV Dye - Past Medical History Past Medical History: Yes Neurological History: Other ENT History: No Pertinent History Cardiac History: Hypertension Respiratory History: No Pertinent History Endocrine Medical History: No Pertinent History Musculoskelatal History: No Pertinent History GI Medical History: No Pertinent History History: No Pertinent History Pyscho-Social History: Anxiety Reproductive Disorders: No Pertinent History Comment: PT. 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) - Social History Smoking Status: Never smoker Exposure to second hand smoke: No Alcohol: None Drug Use: none - Physical Exam Vital Signs: Vital Signs - 24 hr Temp Pulse Resp BP BP BP Pulse Ox 09/24/18 08:00 99.2 F 108 H 15 119/73 94 L 09/24/18 07:39 110 H 14 09/24/18 04:00 99.2 F 97 H 12 174/97 92 L 09/24/18 00:01 110 H 09/24/18 00:00 99.5 F 109 H 14 127/99 92 L 09/23/18 20:00 98.8 F 117 H 12 209/131 99 09/23/18 18:58 97 09/23/18 18:00 99 H 185/126 100 09/23/18 16:00 97.5 F 81 14 219/126 225/126 96 09/23/18 15:06 98 09/23/18 13:46 97.4 F 92 H 12 220/90 96 09/23/18 13:27 96 09/23/18 13:09 158/0 09/23/18 11:21 67 22 131/75 95 09/23/18 11:01 96.7 F 81 14 147/112 97 Additional Findings: 09/24/18 17:36 General appearance: somnolent; non communicative; in mild distress Head: Normocephalic, without trauma Eyes: sclera and conjunctiva clear, lids normal Ears: canals clear, Nose: nares open; no discharge or bleeding Throat: no mucous membrane abnormalities Neck: range of motion is intact, Chest: no lesions Lungs: decreased breath sounds b/l; no wheez or crackles Heart: regular rhythm, normal S1 and S2, Abdomen: soft; gastro tube in place without erythema or leakage; internal fentanyl stimulator palpable Extremities: mild b/l ankle/shine swelling; b/l UE and LE are contracted; hip concaves towards right Circulation: Carotid and pedal pulses are intact and symmetrical, no carotid bruits Skin: warm and dry; no rashes or ulceration noted Neurologic: unable to assess; decreased mental alertness Psychological: unable to assess 09/24/18 18:15 Results - Labs Lab/Micro Results: Lab Results-Last 24 Hours 09/23/18 09/23/18 09/23/18 Range/Units 11:01 11:10 11:10 WBC 9.5 (4.0-10.5) K/mm3 RBC 3.92 L (4.1-5.4) M/mm3 Hgb 12.3 (12.0-16.0) gm/dl Hct 38.2 (35-47) % MCV 97.4 (78-100) fl MCH 31.3 (26-32) pg MCHC 32.2 (32-36) g/dl RDW 12.5 (11.5-14.0) % Plt Count 216 (150-450) K/mm3 MPV 9.9 H (6-9.5) fl Gran % 70.9 H (36.0-66.0) % Eos # (Auto) 0.66 H (0-0.5) Absolute Lymphs (auto) 1.18 (1.0-4.6) Absolute Monos (auto) 0.87 (0.0-1.3) Lymphocytes % 12.5 L (24.0-44.0) % Monocytes % 9.2 (0.0-12.0) % Eosinophils % 7.0 H (0.00-5.0) % Basophils % 0.4 (0.0-0.4) % Absolute Granulocytes 6.71 (1.4-6.9) Basophils # 0.04 (0-0.4) PT (9.95-12.35) SECONDS INR (0.8-3.0) D-Dimer (215-500) ng/mL pO2/FiO2 Ratio % VBG pH (7.32-7.42) VBG pCO2 at Pat Temp (42-55) mm/Hg VBG pO2 at Pat Temp (25-40) mm/Hg VBG HCO3 (22-28) meq/L VBG O2 Sat (Susan) (95-100) VBG Base Excess (-2.0-2.0) VBG Hemoglobin VBG Carboxyhemoglobin (0.0-6.9) % T HGB POC Potassium (3.5-5.1) Sodium 143 (137-145) mmol/L Potassium 4.8 (3.5-5.1) mmol/L Chloride 106 (98-107) mmol/L Carbon Dioxide 27 (22-30) mmol/L Anion Gap 14.7 (5-15) MEQ/L BUN 79 H (7-17) mg/dL Creatinine 1.80 H (0.52-1.04) mg/dL Estimated GFR 31.8 ML/MIN Glucose 196 H (74-106) mg/dL Lactic Acid (0.4-2.0) Calcium 9.7 (8.4-10.2) mg/dL Magnesium (1.6-2.3) mg/dL Total Bilirubin 0.40 (0.2-1.3) mg/dL AST 24 (14-36) U/L ALT 21 (0-35) U/L Alkaline Phosphatase 145 H (38-126) U/L NT-Pro-B Natriuret Pep (0-450) pg/mL Serum Total Protein 8.4 H (6.3-8.2) g/dL Albumin 4.0 (3.5-5.0) g/dL Prealbumin (17.6-36.0) mg/dL Amylase 83 (30-110) U/L Lipase 265 (23-300) U/L Urine Color YELLOW (YELLOW) Urine Appearance SLIGHTLY CLOUDY (CLEAR) Urine pH 8.0 (5-6) Ur Specific Friant 1.011 (1.005-1.025) Urine Protein 30 (Negative) Urine Ketones NEGATIVE (NEGATIVE) Urine Blood SMALL (0-5) Saqib/ul Urine Nitrite NEGATIVE (NEGATIVE) Urine Bilirubin NEGATIVE (NEGATIVE) Urine Urobilinogen NEGATIVE (0-1) mg/dL Ur Leukocyte Esterase LARGE (NEGATIVE) Urine WBC (Auto) 51-100 (0-5) /HPF Urine RBC (Auto) 16-25 (0-2) /HPF U Epithel Cells (Auto) RARE (FEW) /HPF Urine Bacteria (Auto) NONE (NEGATIVE) /HPF U Non-Squamous Epi Cells RARE (FEW) /HPF Urine Culture Reflexed YES (NO) Urine Glucose 50 (NEGATIVE) mg/dL Monoscreen (Negative) Influenza Type A Ag (NEGATIVE) Influenza Type B Ag (NEGATIVE) RSV (PCR) (Negative) Group A Strep Antibody (NEGATIVE) 09/23/18 09/23/18 09/23/18 Range/Units 11:12 11:39 14:24 WBC (4.0-10.5) K/mm3 RBC (4.1-5.4) M/mm3 Hgb (12.0-16.0) gm/dl Hct (35-47) % MCV (78-100) fl MCH (26-32) pg MCHC (32-36) g/dl RDW (11.5-14.0) % Plt Count (150-450) K/mm3 MPV (6-9.5) fl Gran % (36.0-66.0) % Eos # (Auto) (0-0.5) Absolute Lymphs (auto) (1.0-4.6) Absolute Monos (auto) (0.0-1.3) Lymphocytes % (24.0-44.0) % Monocytes % (0.0-12.0) % Eosinophils % (0.00-5.0) % Basophils % (0.0-0.4) % Absolute Granulocytes (1.4-6.9) Basophils # (0-0.4) PT (9.95-12.35) SECONDS INR (0.8-3.0) D-Dimer (215-500) ng/mL pO2/FiO2 Ratio % VBG pH (7.32-7.42) VBG pCO2 at Pat Temp (42-55) mm/Hg VBG pO2 at Pat Temp (25-40) mm/Hg VBG HCO3 (22-28) meq/L VBG O2 Sat (Susan) (95-100) VBG Base Excess (-2.0-2.0) VBG Hemoglobin VBG Carboxyhemoglobin (0.0-6.9) % T HGB POC Potassium (3.5-5.1) Sodium (137-145) mmol/L Potassium (3.5-5.1) mmol/L Chloride (98-107) mmol/L Carbon Dioxide (22-30) mmol/L Anion Gap (5-15) MEQ/L BUN (7-17) mg/dL Creatinine (0.52-1.04) mg/dL Estimated GFR ML/MIN Glucose (74-106) mg/dL Lactic Acid 0.9 (0.4-2.0) Calcium (8.4-10.2) mg/dL Magnesium (1.6-2.3) mg/dL Total Bilirubin (0.2-1.3) mg/dL AST (14-36) U/L ALT (0-35) U/L Alkaline Phosphatase (38-126) U/L NT-Pro-B Natriuret Pep (0-450) pg/mL Serum Total Protein (6.3-8.2) g/dL Albumin (3.5-5.0) g/dL Prealbumin 21.80 (17.6-36.0) mg/dL Amylase (30-110) U/L Lipase (23-300) U/L Urine Color (YELLOW) Urine Appearance (CLEAR) Urine pH (5-6) Ur Specific Friant (1.005-1.025) Urine Protein (Negative) Urine Ketones (NEGATIVE) Urine Blood (0-5) Saqib/ul Urine Nitrite (NEGATIVE) Urine Bilirubin (NEGATIVE) Urine Urobilinogen (0-1) mg/dL Ur Leukocyte Esterase (NEGATIVE) Urine WBC (Auto) (0-5) /HPF Urine RBC (Auto) (0-2) /HPF U Epithel Cells (Auto) (FEW) /HPF Urine Bacteria (Auto) (NEGATIVE) /HPF U Non-Squamous Epi Cells (FEW) /HPF Urine Culture Reflexed (NO) Urine Glucose (NEGATIVE) mg/dL Monoscreen (Negative) Influenza Type A Ag NEGATIVE (NEGATIVE) Influenza Type B Ag NEGATIVE (NEGATIVE) RSV (PCR) NEGATIVE (Negative) Group A Strep Antibody NEGATIVE (NEGATIVE) 09/23/18 09/23/18 09/23/18 Range/Units 14:45 19:08 23:15 WBC 11.5 H (4.0-10.5) K/mm3 RBC 4.02 L (4.1-5.4) M/mm3 Hgb 12.5 (12.0-16.0) gm/dl Hct 38.5 (35-47) % MCV 95.8 (78-100) fl MCH 31.0 (26-32) pg MCHC 32.5 (32-36) g/dl RDW 12.5 (11.5-14.0) % Plt Count 201 (150-450) K/mm3 MPV 9.6 H (6-9.5) fl Gran % (36.0-66.0) % Eos # (Auto) (0-0.5) Absolute Lymphs (auto) (1.0-4.6) Absolute Monos (auto) (0.0-1.3) Lymphocytes % (24.0-44.0) % Monocytes % (0.0-12.0) % Eosinophils % (0.00-5.0) % Basophils % (0.0-0.4) % Absolute Granulocytes (1.4-6.9) Basophils # (0-0.4) PT (9.95-12.35) SECONDS INR (0.8-3.0) D-Dimer (215-500) ng/mL pO2/FiO2 Ratio % VBG pH (7.32-7.42) VBG pCO2 at Pat Temp (42-55) mm/Hg VBG pO2 at Pat Temp (25-40) mm/Hg VBG HCO3 (22-28) meq/L VBG O2 Sat (Susan) (95-100) VBG Base Excess (-2.0-2.0) VBG Hemoglobin VBG Carboxyhemoglobin (0.0-6.9) % T HGB POC Potassium (3.5-5.1) Sodium (137-145) mmol/L Potassium (3.5-5.1) mmol/L Chloride (98-107) mmol/L Carbon Dioxide (22-30) mmol/L Anion Gap (5-15) MEQ/L BUN (7-17) mg/dL Creatinine (0.52-1.04) mg/dL Estimated GFR ML/MIN Glucose (74-106) mg/dL Lactic Acid 0.7 (0.4-2.0) Calcium (8.4-10.2) mg/dL Magnesium (1.6-2.3) mg/dL Total Bilirubin (0.2-1.3) mg/dL AST (14-36) U/L ALT (0-35) U/L Alkaline Phosphatase (38-126) U/L NT-Pro-B Natriuret Pep 325 (0-450) pg/mL Serum Total Protein (6.3-8.2) g/dL Albumin (3.5-5.0) g/dL Prealbumin (17.6-36.0) mg/dL Amylase (30-110) U/L Lipase (23-300) U/L Urine Color (YELLOW) Urine Appearance (CLEAR) Urine pH (5-6) Ur Specific Friant (1.005-1.025) Urine Protein (Negative) Urine Ketones (NEGATIVE) Urine Blood (0-5) Saqib/ul Urine Nitrite (NEGATIVE) Urine Bilirubin (NEGATIVE) Urine Urobilinogen (0-1) mg/dL Ur Leukocyte Esterase (NEGATIVE) Urine WBC (Auto) (0-5) /HPF Urine RBC (Auto) (0-2) /HPF U Epithel Cells (Auto) (FEW) /HPF Urine Bacteria (Auto) (NEGATIVE) /HPF U Non-Squamous Epi Cells (FEW) /HPF Urine Culture Reflexed (NO) Urine Glucose (NEGATIVE) mg/dL Monoscreen (Negative) Influenza Type A Ag (NEGATIVE) Influenza Type B Ag (NEGATIVE) RSV (PCR) (Negative) Group A Strep Antibody (NEGATIVE) 09/23/18 09/23/18 09/23/18 Range/Units 23:15 23:15 23:15 WBC (4.0-10.5) K/mm3 RBC (4.1-5.4) M/mm3 Hgb (12.0-16.0) gm/dl Hct (35-47) % MCV (78-100) fl MCH (26-32) pg MCHC (32-36) g/dl RDW (11.5-14.0) % Plt Count (150-450) K/mm3 MPV (6-9.5) fl Gran % (36.0-66.0) % Eos # (Auto) (0-0.5) Absolute Lymphs (auto) (1.0-4.6) Absolute Monos (auto) (0.0-1.3) Lymphocytes % (24.0-44.0) % Monocytes % (0.0-12.0) % Eosinophils % (0.00-5.0) % Basophils % (0.0-0.4) % Absolute Granulocytes (1.4-6.9) Basophils # (0-0.4) PT (9.95-12.35) SECONDS INR (0.8-3.0) D-Dimer 2233 H* (215-500) ng/mL pO2/FiO2 Ratio % VBG pH (7.32-7.42) VBG pCO2 at Pat Temp (42-55) mm/Hg VBG pO2 at Pat Temp (25-40) mm/Hg VBG HCO3 (22-28) meq/L VBG O2 Sat (Susan) (95-100) VBG Base Excess (-2.0-2.0) VBG Hemoglobin VBG Carboxyhemoglobin (0.0-6.9) % T HGB POC Potassium (3.5-5.1) Sodium 144 (137-145) mmol/L Potassium 4.7 (3.5-5.1) mmol/L Chloride 111 H (98-107) mmol/L Carbon Dioxide 24 (22-30) mmol/L Anion Gap 14.5 (5-15) MEQ/L BUN 66 H (7-17) mg/dL Creatinine 1.66 H (0.52-1.04) mg/dL Estimated GFR 34.9 ML/MIN Glucose 179 H (74-106) mg/dL Lactic Acid (0.4-2.0) Calcium 9.5 (8.4-10.2) mg/dL Magnesium 2.9 H (1.6-2.3) mg/dL Total Bilirubin 0.50 (0.2-1.3) mg/dL AST 26 (14-36) U/L ALT 22 (0-35) U/L Alkaline Phosphatase 139 H (38-126) U/L NT-Pro-B Natriuret Pep (0-450) pg/mL Serum Total Protein 7.9 (6.3-8.2) g/dL Albumin 3.8 (3.5-5.0) g/dL Prealbumin (17.6-36.0) mg/dL Amylase (30-110) U/L Lipase (23-300) U/L Urine Color (YELLOW) Urine Appearance (CLEAR) Urine pH (5-6) Ur Specific Friant (1.005-1.025) Urine Protein (Negative) Urine Ketones (NEGATIVE) Urine Blood (0-5) Saqib/ul Urine Nitrite (NEGATIVE) Urine Bilirubin (NEGATIVE) Urine Urobilinogen (0-1) mg/dL Ur Leukocyte Esterase (NEGATIVE) Urine WBC (Auto) (0-5) /HPF Urine RBC (Auto) (0-2) /HPF U Epithel Cells (Auto) (FEW) /HPF Urine Bacteria (Auto) (NEGATIVE) /HPF U Non-Squamous Epi Cells (FEW) /HPF Urine Culture Reflexed (NO) Urine Glucose (NEGATIVE) mg/dL Monoscreen (Negative) Influenza Type A Ag (NEGATIVE) Influenza Type B Ag (NEGATIVE) RSV (PCR) (Negative) Group A Strep Antibody (NEGATIVE) 09/23/18 09/23/18 09/23/18 Range/Units 23:18 23:18 Unknown WBC (4.0-10.5) K/mm3 RBC (4.1-5.4) M/mm3 Hgb (12.0-16.0) gm/dl Hct (35-47) % MCV (78-100) fl MCH (26-32) pg MCHC (32-36) g/dl RDW (11.5-14.0) % Plt Count (150-450) K/mm3 MPV (6-9.5) fl Gran % (36.0-66.0) % Eos # (Auto) (0-0.5) Absolute Lymphs (auto) (1.0-4.6) Absolute Monos (auto) (0.0-1.3) Lymphocytes % (24.0-44.0) % Monocytes % (0.0-12.0) % Eosinophils % (0.00-5.0) % Basophils % (0.0-0.4) % Absolute Granulocytes (1.4-6.9) Basophils # (0-0.4) PT (9.95-12.35) SECONDS INR (0.8-3.0) D-Dimer (215-500) ng/mL pO2/FiO2 Ratio 21.0 % VBG pH 7.42 (7.32-7.42) VBG pCO2 at Pat Temp 36 L (42-55) mm/Hg VBG pO2 at Pat Temp 65 H (25-40) mm/Hg VBG HCO3 23.4 (22-28) meq/L VBG O2 Sat (Susan) 96.9 (95-100) VBG Base Excess -0.7 (-2.0-2.0) VBG Hemoglobin 12.9 VBG Carboxyhemoglobin 2.7 (0.0-6.9) % T HGB POC Potassium 4.5 (3.5-5.1) Sodium (137-145) mmol/L Potassium (3.5-5.1) mmol/L Chloride (98-107) mmol/L Carbon Dioxide (22-30) mmol/L Anion Gap (5-15) MEQ/L BUN (7-17) mg/dL Creatinine (0.52-1.04) mg/dL Estimated GFR ML/MIN Glucose (74-106) mg/dL Lactic Acid 0.8 (0.4-2.0) Calcium (8.4-10.2) mg/dL Magnesium (1.6-2.3) mg/dL Total Bilirubin (0.2-1.3) mg/dL AST (14-36) U/L ALT (0-35) U/L Alkaline Phosphatase (38-126) U/L NT-Pro-B Natriuret Pep (0-450) pg/mL Serum Total Protein (6.3-8.2) g/dL Albumin (3.5-5.0) g/dL Prealbumin (17.6-36.0) mg/dL Amylase (30-110) U/L Lipase (23-300) U/L Urine Color (YELLOW) Urine Appearance (CLEAR) Urine pH (5-6) Ur Specific Friant (1.005-1.025) Urine Protein (Negative) Urine Ketones (NEGATIVE) Urine Blood (0-5) Saqib/ul Urine Nitrite (NEGATIVE) Urine Bilirubin (NEGATIVE) Urine Urobilinogen (0-1) mg/dL Ur Leukocyte Esterase (NEGATIVE) Urine WBC (Auto) (0-5) /HPF Urine RBC (Auto) (0-2) /HPF U Epithel Cells (Auto) (FEW) /HPF Urine Bacteria (Auto) (NEGATIVE) /HPF U Non-Squamous Epi Cells (FEW) /HPF Urine Culture Reflexed (NO) Urine Glucose (NEGATIVE) mg/dL Monoscreen NEGATIVE (Negative) Influenza Type A Ag (NEGATIVE) Influenza Type B Ag (NEGATIVE) RSV (PCR) (Negative) Group A Strep Antibody (NEGATIVE) 09/24/18 09/24/18 09/24/18 Range/Units 00:11 05:28 05:28 WBC 8.2 (4.0-10.5) K/mm3 RBC 4.15 (4.1-5.4) M/mm3 Hgb 12.7 (12.0-16.0) gm/dl Hct 40.3 (35-47) % MCV 97.1 (78-100) fl MCH 30.6 (26-32) pg MCHC 31.5 L (32-36) g/dl RDW 13.0 (11.5-14.0) % Plt Count 226 (150-450) K/mm3 MPV 10.2 H (6-9.5) fl Gran % 69.6 H (36.0-66.0) % Eos # (Auto) 0.30 (0-0.5) Absolute Lymphs (auto) 1.50 (1.0-4.6) Absolute Monos (auto) 0.66 (0.0-1.3) Lymphocytes % 18.3 L (24.0-44.0) % Monocytes % 8.0 (0.0-12.0) % Eosinophils % 3.7 (0.00-5.0) % Basophils % 0.4 (0.0-0.4) % Absolute Granulocytes 5.72 (1.4-6.9) Basophils # 0.03 (0-0.4) PT 14.0 H (9.95-12.35) SECONDS INR 1.20 (0.8-3.0) D-Dimer (215-500) ng/mL pO2/FiO2 Ratio % VBG pH (7.32-7.42) VBG pCO2 at Pat Temp (42-55) mm/Hg VBG pO2 at Pat Temp (25-40) mm/Hg VBG HCO3 (22-28) meq/L VBG O2 Sat (Susan) (95-100) VBG Base Excess (-2.0-2.0) VBG Hemoglobin VBG Carboxyhemoglobin (0.0-6.9) % T HGB POC Potassium (3.5-5.1) Sodium 146 H (137-145) mmol/L Potassium 4.5 (3.5-5.1) mmol/L Chloride 114 H (98-107) mmol/L Carbon Dioxide 24 (22-30) mmol/L Anion Gap 13.1 (5-15) MEQ/L BUN 60 H (7-17) mg/dL Creatinine 1.50 H (0.52-1.04) mg/dL Estimated GFR 39.2 ML/MIN Glucose 122 H (74-106) mg/dL Lactic Acid (0.4-2.0) Calcium 9.6 (8.4-10.2) mg/dL Magnesium (1.6-2.3) mg/dL Total Bilirubin (0.2-1.3) mg/dL AST (14-36) U/L ALT (0-35) U/L Alkaline Phosphatase (38-126) U/L NT-Pro-B Natriuret Pep (0-450) pg/mL Serum Total Protein (6.3-8.2) g/dL Albumin (3.5-5.0) g/dL Prealbumin (17.6-36.0) mg/dL Amylase (30-110) U/L Lipase (23-300) U/L Urine Color (YELLOW) Urine Appearance (CLEAR) Urine pH (5-6) Ur Specific Friant (1.005-1.025) Urine Protein (Negative) Urine Ketones (NEGATIVE) Urine Blood (0-5) Saqib/ul Urine Nitrite (NEGATIVE) Urine Bilirubin (NEGATIVE) Urine Urobilinogen (0-1) mg/dL Ur Leukocyte Esterase (NEGATIVE) Urine WBC (Auto) (0-5) /HPF Urine RBC (Auto) (0-2) /HPF U Epithel Cells (Auto) (FEW) /HPF Urine Bacteria (Auto) (NEGATIVE) /HPF U Non-Squamous Epi Cells (FEW) /HPF Urine Culture Reflexed (NO) Urine Glucose (NEGATIVE) mg/dL Monoscreen (Negative) Influenza Type A Ag (NEGATIVE) Influenza Type B Ag (NEGATIVE) RSV (PCR) (Negative) Group A Strep Antibody (NEGATIVE) 09/24/18 Range/Units 05:30 WBC (4.0-10.5) K/mm3 RBC (4.1-5.4) M/mm3 Hgb (12.0-16.0) gm/dl Hct (35-47) % MCV (78-100) fl MCH (26-32) pg MCHC (32-36) g/dl RDW (11.5-14.0) % Plt Count (150-450) K/mm3 MPV (6-9.5) fl Gran % (36.0-66.0) % Eos # (Auto) (0-0.5) Absolute Lymphs (auto) (1.0-4.6) Absolute Monos (auto) (0.0-1.3) Lymphocytes % (24.0-44.0) % Monocytes % (0.0-12.0) % Eosinophils % (0.00-5.0) % Basophils % (0.0-0.4) % Absolute Granulocytes (1.4-6.9) Basophils # (0-0.4) PT (9.95-12.35) SECONDS INR (0.8-3.0) D-Dimer (215-500) ng/mL pO2/FiO2 Ratio % VBG pH (7.32-7.42) VBG pCO2 at Pat Temp (42-55) mm/Hg VBG pO2 at Pat Temp (25-40) mm/Hg VBG HCO3 (22-28) meq/L VBG O2 Sat (Susan) (95-100) VBG Base Excess (-2.0-2.0) VBG Hemoglobin VBG Carboxyhemoglobin (0.0-6.9) % T HGB POC Potassium (3.5-5.1) Sodium (137-145) mmol/L Potassium (3.5-5.1) mmol/L Chloride (98-107) mmol/L Carbon Dioxide (22-30) mmol/L Anion Gap (5-15) MEQ/L BUN (7-17) mg/dL Creatinine (0.52-1.04) mg/dL Estimated GFR ML/MIN Glucose (74-106) mg/dL Lactic Acid 0.6 (0.4-2.0) Calcium (8.4-10.2) mg/dL Magnesium (1.6-2.3) mg/dL Total Bilirubin (0.2-1.3) mg/dL AST (14-36) U/L ALT (0-35) U/L Alkaline Phosphatase (38-126) U/L NT-Pro-B Natriuret Pep (0-450) pg/mL Serum Total Protein (6.3-8.2) g/dL Albumin (3.5-5.0) g/dL Prealbumin (17.6-36.0) mg/dL Amylase (30-110) U/L Lipase (23-300) U/L Urine Color (YELLOW) Urine Appearance (CLEAR) Urine pH (5-6) Ur Specific Friant (1.005-1.025) Urine Protein (Negative) Urine Ketones (NEGATIVE) Urine Blood (0-5) Saqib/ul Urine Nitrite (NEGATIVE) Urine Bilirubin (NEGATIVE) Urine Urobilinogen (0-1) mg/dL Ur Leukocyte Esterase (NEGATIVE) Urine WBC (Auto) (0-5) /HPF Urine RBC (Auto) (0-2) /HPF U Epithel Cells (Auto) (FEW) /HPF Urine Bacteria (Auto) (NEGATIVE) /HPF U Non-Squamous Epi Cells (FEW) /HPF Urine Culture Reflexed (NO) Urine Glucose (NEGATIVE) mg/dL Monoscreen (Negative) Influenza Type A Ag (NEGATIVE) Influenza Type B Ag (NEGATIVE) RSV (PCR) (Negative) Group A Strep Antibody (NEGATIVE) Microbiology 09/23/18 11:20 Blood Culture - Preliminary Blood NO GROWTH TO DATE 09/23/18 11:10 Blood Culture - Preliminary Blood NO GROWTH TO DATE 09/23/18 11:01 Urine Culture - Preliminary Catherized GRAM POSITIVE ID AND SENSITIVITY PENDING - Radiology Impressions Radiology Exams & Impressions: Radiology Procedures Category Date Time Status ABDOMEN 2 VIEW Stat Exams 09/23/18 18:47 Completed CHEST 1 VIEW (PORTABLE) Stat Exams 09/23/18 11:05 Completed ULTRASOUND BILATERAL LOWER EXTREMITY [VENOUS BILATERAL Exams 09/24/18 08:00 Ordered EXTREMITY] [US] Routine ULTRASOUND BILATERAL LOWER EXTREMITY [VENOUS BILATERAL Exams 09/24/18 08:00 Stop Req EXTREMITY] [US] Routine Assessment/Plan (1) Encephalopathy acute Current Visit: Yes Status: Acute Assessment & Plan: due to JOSH and PNA cont close observation Code(s): G93.40 - ENCEPHALOPATHY, UNSPECIFIED (2) Pneumonia Current Visit: Yes Status: Acute Assessment & Plan: left sided diffuse infiltrate cont Zosyn f/u Cx report monitor lactic cont IVF Code(s): J18.9 - PNEUMONIA, UNSPECIFIED ORGANISM (3) Acute kidney injury Current Visit: Yes Status: Acute Assessment & Plan: h/o chronic UTI improves with IVF cont hydration; avoid nephrotoxicity agent Code(s): N17.9 - ACUTE KIDNEY FAILURE, UNSPECIFIED (4) Elevated d-dimer Current Visit: Yes Status: Acute Assessment & Plan: negative doppler studies on b/l UE and LE pt has risk due to chronic immobility clinically, pt seems to have pain / discomfort cont lovenox for now repeat D-dimer in AM Code(s): R79.89 - OTHER SPECIFIED ABNORMAL FINDINGS OF BLOOD CHEMISTRY
--- NOTE | 2018-09-24 12:42 | XRAY ---
Indication: Elevated d-dimer. Two-dimensional sonogram and color Doppler imaging of the major venous vessels of the left and right leg was performed. Comparison: None Sonogram technically difficult due to patient condition. No thrombus seen in the examined deep venous vessels of the left and right leg including greater saphenous vein. Veins demonstrate normal compressibility. Venous waveforms are normal with and without augmentation. Impression: Left and right legs grossly negative for DVT.
--- NOTE | 2018-09-24 12:44 | XRAY ---
Indication: Elevated d-dimer. Two-dimensional sonogram and color Doppler imaging of the major venous vessels of the left and right upper extremities was performed. Comparison: None Sonogram technically difficult due to patient condition. No thrombus seen in the visualized jugular, subclavian, axilla, basilic, brachial, radial, and ulnar veins bilaterally. Veins demonstrate normal compressibility. Venous waveforms are normal with and without augmentation. Impression: Left and right upper extremities grossly negative for DVT.
[2018-09-25] MEDS: Zanaflex 4 MG PEG SCH ×4 (00:40→18:04)
[2018-09-25] MEDS: Valium 5 MG PEG SCH ×4 (02:51→20:13)
[2018-09-25] MEDS: LIORESAL 10 MG PEG SCH ×4 (02:51→20:13)
[2018-09-25] MEDS: APRESOLINE 20 MG/ML INJ IV PRN ×2 (04:07→15:35)
[2018-09-25] MEDS: MORPHINE SULFATE 4 MG INJ IV PRN ×3 (04:43→15:34)
[2018-09-25] MEDS: TYLENOL SUSPENSION 160 MG/5 ML PEG PRN ×2 (05:27→13:34)
[2018-09-25 05:30] LABS: Hematocrit 39.2 % (35-47); Mean Cell Volume 100.8 fl (78-100); Mean Corpuscular Hemoglobin 30.8 pg (26-32); Mean Corpuscular Hgb Concent. 30.6 g/dl (32-36); Platelet Count 195 K/mm3 (150-450); Red Blood Count 3.89 M/mm3 (4.1-5.4); Red Cell Distribution Width 13.7 % (11.5-14.0); White Blood Count 8.8 K/mm3 (4.0-10.5)
[2018-09-25 05:59] LABS: ANION GAP 12.8 MEQ/L (5-15); BLOOD UREA NITROGEN 36 mg/dL (7-17); CHLORIDE 119 mmol/L (98-107); Calcium 9.4 mg/dL (8.4-10.2); Carbon Dioxide 21 mmol/L (22-30); Creatinine 1 0.91 mg/dL (0.52-1.04); Glucose 203 mg/dL (74-106); Potassium 3.7 mmol/L (3.5-5.1); SODIUM 149 mmol/L (137-145)
[2018-09-25] MEDS: Zosyn 3.375GM/100 Ml D5W 3.375 GM/100 ML IVPB IV SCH ×3 (06:55→21:53)
[2018-09-25] MEDS: NORVASC 5 MG PEG SCH (08:12)
[2018-09-25] MEDS: ZOLOFT 50 MG TABLET PEG SCH (08:13)
[2018-09-25] MEDS: BABY ASPIRIN 81 MG CHEW PEG SCH (08:14)
[2018-09-25] MEDS: NON-FORMULARY ITEM PEG SCH ×3 (08:14→20:13)
[2018-09-25] MEDS: Sodium Chloride 0.9% 1000 ML 1,000 ML IV SCH ×2 (09:38→21:44)
[2018-09-25] MEDS: ENOXAPARIN SODIUM SQ SCH (09:39)
[2018-09-25] MEDS ORDERED: PHARMACY DOSING REQUIRED: VANCOMYCIN IV ONE (10:51)
[2018-09-25] MEDS ORDERED: NORVASC 5 MG PO ONE (11:00)
[2018-09-25] MEDS ORDERED: PHARMACY DOSING REQUEST MC ONE (11:17)
[2018-09-25] MEDS: VANCOCIN 1 GM VIAL*** 1 GM in Sodium Chloride 0.9% 250 ML 250 ML IV SCH (11:25)
[2018-09-25] MEDS: LOPRESSOR 5 MG/5 ML INJECTION IV PRN (12:07)
--- NOTE | 2018-09-25 12:18 | PCM.NOTE ---
Date and Time: 09/25/18 1216 Subjective Assessment: last 24 hours events noted - Review of Systems Constitutional: Fever, No Chills Eyes: No Symptoms Ears, Nose, & Throat: No Symptoms Respiratory: Orthopnea, Short Of Breath, Wheezing Cardiac: No Chest Pain, No Edema, No Syncope Abdominal/Gastrointestinal: No Abdominal Pain, No Nausea, No Vomiting, No Diarrhea Genitourinary Symptoms: No Dysuria Musculoskeletal: No Back Pain, No Neck Pain Skin: No Rash Neurological: No Dizziness, No Focal Weakness, No Sensory Changes Psychological: No Symptoms Endocrine: No Symptoms Hematologic/Lymphatic: No Symptoms Immunological/Allergic: No Symptoms Objective Exam General Appearance: moderate distress Neurologic Exam: disoriented, No motor deficits Skin Exam: normal color, warm, dry Eye Exam: PERRL, EOMI, eyes nml inspection Ears, Nose, Throat Exam: normal ENT inspection, pharynx normal, moist mucous membranes Neck Exam: normal inspection, non-tender, supple, full range of motion Respiratory Exam: normal breath sounds, lungs clear, No respiratory distress Cardiovascular Exam: regular rate/rhythm, normal heart sounds Gastrointestinal/Abdomen Exam: soft, No tenderness, No mass Extremity Exam: normal inspection, normal range of motion Back Exam: normal inspection, normal range of motion, No CVA tenderness, No vertebral tenderness Pelvic Exam: deferred Rectal Exam: deferred OBJECTIVE DATA Vital Signs: Vital Signs - 24 hr Temp Pulse Resp BP Pulse Ox 09/25/18 08:58 99.9 F 09/25/18 08:00 20 09/25/18 07:25 100.6 F 105 H 20 155/90 95 09/25/18 06:09 133 H 149/88 09/25/18 06:00 99.2 F 142 H 14 152/105 94 L 09/25/18 04:00 16 09/25/18 02:00 98.5 F 112 H 16 119/85 93 L 09/25/18 00:00 15 09/24/18 22:00 99.5 F 124 H 15 133/95 93 L 09/24/18 20:00 13 09/24/18 18:30 108 H 10 L 133/85 95 09/24/18 18:15 118 H 18 210/107 90 L 09/24/18 15:58 97 F 79 11 L 99/59 94 L 09/24/18 15:56 78 14 09/24/18 14:17 107 H 14 102/72 96 09/24/18 14:06 105 H 18 102/72 96 Pain Assessment - Last Documented Pain Intensity 1 Pain Scale Used [facility] Intake and Output: Intake & Output 09/23/18 09/24/18 09/25/18 09/26/18 11:59 11:59 11:59 11:59 Intake Total 1712 3849 Output Total 2200 3100 Balance -488 749 Weight 54.431 kg 58.4 kg 61.2 kg Lab Results: Lab Results-Last 24 Hours 09/25/18 09/25/18 09/25/18 Range/Units 05:23 05:23 05:23 WBC 8.8 (4.0-10.5) K/mm3 RBC 3.89 L (4.1-5.4) M/mm3 Hgb 12.0 (12.0-16.0) gm/dl Hct 39.2 (35-47) % MCV 100.8 H (78-100) fl MCH 30.8 (26-32) pg MCHC 30.6 L (32-36) g/dl RDW 13.7 (11.5-14.0) % Plt Count 195 (150-450) K/mm3 MPV 10.0 H (6-9.5) fl D-Dimer 3052 H* (215-500) ng/mL Sodium 149 H (137-145) mmol/L Potassium 3.7 (3.5-5.1) mmol/L Chloride 119 H (98-107) mmol/L Carbon Dioxide 21 L (22-30) mmol/L Anion Gap 12.8 (5-15) MEQ/L BUN 36 H (7-17) mg/dL Creatinine 0.91 (0.52-1.04) mg/dL Estimated GFR > 60.0 ML/MIN Glucose 203 H (74-106) mg/dL Calcium 9.4 (8.4-10.2) mg/dL Radiology Exams: Radiology Procedures Category Date Time Status ABDOMEN 2 VIEW Stat Exams 09/23/18 18:47 Completed ULTRASOUND BILATERAL LOWER EXTREMITY [VENOUS BILATERAL Exams 09/24/18 08:00 Completed EXTREMITY] [US] Routine ULTRASOUND BILATERAL LOWER EXTREMITY [VENOUS BILATERAL Exams 09/24/18 08:00 Completed EXTREMITY] [US] Routine Multi-Disciplinary Progress Notes: Multi-Disciplinary Progress Notes 09/25/18 11:10 Pharmacy Note by Emmett Aly Pharmacokinetic dosing service Date: 09/25/18 Time: Objective: Patient: Floor: Age: 48 yo Serum creatinine: 1 mg/dL Height: 48 Inches Weight (kg): 61 Diagnosis:UTI Relevant medical/social history: Cultures and sensitivities:ENTEROCOCCUS UTI Other labs: Assessment: IBW (kg): 36.40 Dosing wt(kg): 61 Estimated Creatinine clearance (ml/min): 39.1 CRCL method: Cockcroft and Gault using ibw(default). Drug selected: Vancomycin Loading dose (mg): 0 Vd (liters): 45.8 (factor used: 0.75 L/kg) Sahil (hr-1): 0.037 Half life ( hrs): 18.73 Recommended dose: 1000 mg Interval: 24 hrs Infusion time (hrs): 1.5 Predicted peak (mcg/mL): 36.1 Predicted trough (mcg/mL): 15.70 Total body weight is being used for vancomycin dosing. Renal function is stable [ ] /unstable [ ] Recommendations: Give Vancomycin 1000 mg q 24 hrs with an expected Cpeak of 36.1 mcg/ml and an expected Ctrough of 15.70 mcg/ml Renal dosing of other antibiotics (review renal dosing of other medications and list guidelines here): Thank you for the consult, will continue to follow. TROUGH 09/28/18 Signature:Pao ALY [facility] Initialized on 09/25/18 11:10 - END OF NOTE Assessment/Plan (1) Dehydration Current Visit: Yes Status: Acute Code(s): E86.0 - DEHYDRATION (2) Elevated d-dimer Current Visit: Yes Status: Acute Code(s): R79.89 - OTHER SPECIFIED ABNORMAL FINDINGS OF BLOOD CHEMISTRY (3) Encephalopathy acute Current Visit: Yes Status: Acute Code(s): G93.40 - ENCEPHALOPATHY, UNSPECIFIED (4) Pneumonia Current Visit: Yes Status: Acute Code(s): J18.9 - PNEUMONIA, UNSPECIFIED ORGANISM (5) Pneumonia involving left lung Current Visit: Yes Status: Acute Code(s): J18.9 - PNEUMONIA, UNSPECIFIED ORGANISM (6) UTI (urinary tract infection) Current Visit: Yes Status: Acute Code(s): N39.0 - URINARY TRACT INFECTION, SITE NOT SPECIFIED
[2018-09-26] MEDS: MORPHINE SULFATE 4 MG INJ IV PRN ×3 (00:08→11:59)
[2018-09-26] MEDS: Zanaflex 4 MG PEG SCH ×4 (00:09→17:05)
[2018-09-26] MEDS: APRESOLINE 20 MG/ML INJ IV PRN ×2 (03:13→11:59)
[2018-09-26] MEDS: LIORESAL 10 MG PEG SCH ×4 (03:14→19:53)
[2018-09-26] MEDS: Valium 5 MG PEG SCH ×4 (03:15→19:53)
[2018-09-26] MEDS: Zosyn 3.375GM/100 Ml D5W 3.375 GM/100 ML IVPB IV SCH ×3 (05:20→22:13)
[2018-09-26] MEDS: LOPRESSOR 5 MG/5 ML INJECTION IV PRN (05:47)
[2018-09-26] MEDS: BABY ASPIRIN 81 MG CHEW PEG SCH (07:47)
[2018-09-26] MEDS: NON-FORMULARY ITEM PEG SCH ×3 (07:47→19:53)
[2018-09-26] MEDS: Sodium Chloride 0.9% 1000 ML 1,000 ML IV SCH ×2 (07:56→17:06)
[2018-09-26] MEDS: NORVASC 5 MG PEG SCH (07:56)
[2018-09-26] MEDS: ZOLOFT 50 MG TABLET PEG SCH (07:56)
[2018-09-26] MEDS: TYLENOL SUSPENSION 160 MG/5 ML PEG PRN ×2 (08:07→19:54)
--- NOTE | 2018-09-26 08:25 | PCM.NOTE ---
Date and Time: 09/26/18823 Subjective Assessment: last 24 hours events noted - Review of Systems Constitutional: No Fever, No Chills Eyes: No Symptoms Ears, Nose, & Throat: No Symptoms Respiratory: No Cough, No Short Of Breath Cardiac: No Chest Pain, No Edema, No Syncope Abdominal/Gastrointestinal: No Abdominal Pain, No Nausea, No Vomiting, No Diarrhea Genitourinary Symptoms: No Dysuria Musculoskeletal: No Back Pain, No Neck Pain Skin: No Rash Neurological: No Dizziness, No Focal Weakness, No Sensory Changes Psychological: No Symptoms Endocrine: No Symptoms Hematologic/Lymphatic: No Symptoms Immunological/Allergic: No Symptoms Objective Exam General Appearance: mild distress Neurologic Exam: sensation nml, No motor deficits Skin Exam: normal color, warm, dry Eye Exam: PERRL, EOMI, eyes nml inspection Ears, Nose, Throat Exam: normal ENT inspection, pharynx normal, moist mucous membranes Neck Exam: normal inspection, non-tender, supple, full range of motion Respiratory Exam: normal breath sounds, lungs clear, No respiratory distress Cardiovascular Exam: regular rate/rhythm, normal heart sounds Gastrointestinal/Abdomen Exam: soft, No tenderness, No mass Extremity Exam: normal inspection, normal range of motion Back Exam: normal inspection, normal range of motion, No CVA tenderness, No vertebral tenderness Pelvic Exam: deferred Rectal Exam: deferred OBJECTIVE DATA Vital Signs: Vital Signs - 24 hr Temp Pulse Resp BP Pulse Ox 09/26/18 08:00 22 09/26/18 07:24 99.2 F 112 H 22 153/95 97 09/26/18 04:00 16 09/26/18 03:09 208/98 97 09/26/18 01:00 98.8 F 111 H 20 139/78 98 09/26/18 00:00 18 09/25/18 22:45 98 09/25/18 21:00 98.8 F 112 H 15 128/86 98 09/25/18 20:00 15 09/25/18 17:06 98.7 F 95 09/25/18 16:34 109 H 170/96 09/25/18 15:22 99.4 F 09/25/18 13:19 95 09/25/18 12:28 99.6 F 112 H 22 163/92 91 L 09/25/18 12:00 22 09/25/18 11:20 111 H 09/25/18 08:58 99.9 F Oxygen-Last 24 hours O2 Percentage 2 Liters = 28% O2 Percentage 2 Liters = 28% O2 Percentage 2 Liters = 28% Pain Assessment - Last Documented Pain Intensity 2 Pain Scale Used [facility] Intake and Output: Intake & Output 09/23/18 09/24/18 09/25/18 09/26/18 11:59 11:59 11:59 11:59 Intake Total 1712 4149 2208 Output Total 2200 3100 3800 Balance -488 670 -2835 Weight 54.431 kg 58.4 kg 61.2 kg 60.4 kg Radiology Exams: Radiology Procedures Category Date Time Status ULTRASOUND BILATERAL LOWER EXTREMITY [VENOUS BILATERAL Exams 09/24/18 08:00 Completed EXTREMITY] [US] Routine ULTRASOUND BILATERAL LOWER EXTREMITY [VENOUS BILATERAL Exams 09/24/18 08:00 Completed EXTREMITY] [US] Routine Multi-Disciplinary Progress Notes: Multi-Disciplinary Progress Notes 09/25/18 11:10 Pharmacy Note by Emmett Aly Pharmacokinetic dosing service Date: 09/25/18 Time: Objective: Patient: Floor: Age: 48 yo Serum creatinine: 1 mg/dL Height: 48 Inches Weight (kg): 61 Diagnosis:UTI Relevant medical/social history: Cultures and sensitivities:ENTEROCOCCUS UTI Other labs: Assessment: IBW (kg): 36.40 Dosing wt(kg): 61 Estimated Creatinine clearance (ml/min): 39.1 CRCL method: Cockcroft and Gault using ibw(default). Drug selected: Vancomycin Loading dose (mg): 0 Vd (liters): 45.8 (factor used: 0.75 L/kg) Sahil (hr-1): 0.037 Half life ( hrs): 18.73 Recommended dose: 1000 mg Interval: 24 hrs Infusion time (hrs): 1.5 Predicted peak (mcg/mL): 36.1 Predicted trough (mcg/mL): 15.70 Total body weight is being used for vancomycin dosing. Renal function is stable [ ] /unstable [ ] Recommendations: Give Vancomycin 1000 mg q 24 hrs with an expected Cpeak of 36.1 mcg/ml and an expected Ctrough of 15.70 mcg/ml Renal dosing of other antibiotics (review renal dosing of other medications and list guidelines here): Thank you for the consult, will continue to follow. TROUGH 09/28/18 Signature:Pao ALY [facility] Initialized on 09/25/18 11:10 - END OF NOTE Assessment/Plan (1) Dehydration Current Visit: Yes Status: Acute Code(s): E86.0 - DEHYDRATION (2) Elevated d-dimer Current Visit: Yes Status: Acute Code(s): R79.89 - OTHER SPECIFIED ABNORMAL FINDINGS OF BLOOD CHEMISTRY (3) Encephalopathy acute Current Visit: Yes Status: Acute Code(s): G93.40 - ENCEPHALOPATHY, UNSPECIFIED (4) Pneumonia Current Visit: Yes Status: Acute Code(s): J18.9 - PNEUMONIA, UNSPECIFIED ORGANISM (5) Pneumonia involving left lung Current Visit: Yes Status: Acute Code(s): J18.9 - PNEUMONIA, UNSPECIFIED ORGANISM (6) UTI (urinary tract infection) Current Visit: Yes Status: Acute Code(s): N39.0 - URINARY TRACT INFECTION, SITE NOT SPECIFIED
[2018-09-26] MEDS: ENOXAPARIN SODIUM SQ SCH (10:31)
[2018-09-26] MEDS: VANCOCIN 1 GM VIAL*** 1 GM in Sodium Chloride 0.9% 250 ML 250 ML IV SCH (10:31)
[2018-09-27] MEDS: APRESOLINE 20 MG/ML INJ IV PRN ×2 (00:43→06:56)
[2018-09-27] MEDS: MORPHINE SULFATE 4 MG INJ IV PRN ×2 (00:43→06:56)
[2018-09-27] MEDS: Zanaflex 4 MG PEG SCH ×2 (00:44→05:20)
[2018-09-27] MEDS: Valium 5 MG PEG SCH ×2 (02:34→09:45)
[2018-09-27] MEDS: LIORESAL 10 MG PEG SCH ×2 (02:34→09:38)
[2018-09-27] MEDS: Sodium Chloride 0.9% 1000 ML 1,000 ML IV SCH (05:20)
[2018-09-27] MEDS: Zosyn 3.375GM/100 Ml D5W 3.375 GM/100 ML IVPB IV SCH (05:20)
[2018-09-27] MEDS ORDERED: Zofran 4 MG/2 ML VIAL IV PRN (07:02)
[2018-09-27 07:42] VITALS: BP 163/90
[2018-09-27 08:24] VITALS: PULSE 107; O2SAT 93
--- NOTE | 2018-09-27 09:02 | PCM.NOTE ---
Date and Time: 09/27/18899 Subjective Assessment: per nursing patient had a long pause on tele this am around 90 seconds, requiring high levels of oxygen. tolerating tube feeds, otherwise no new changes Objective Exam General Appearance: no apparent distress Skin Exam: normal color Respiratory Exam: crackles/rales, rhonchi Cardiovascular Exam: regular rate/rhythm, normal heart sounds Gastrointestinal/Abdomen Exam: soft, No tenderness, No mass OBJECTIVE DATA Vital Signs: Vital Signs - 24 hr Temp Pulse Resp BP Pulse Ox 09/27/18 08:21 107 H 16 93 L 09/27/18 08:00 19 09/27/18 07:41 163/90 09/27/18 07:29 99.5 F 118 H 20 96 09/27/18 04:00 18 09/27/18 03:32 98.6 F 115 H 18 155/97 98 09/27/18 01:25 106 H 138/73 09/27/18 00:00 98.8 F 108 H 14 202/78 98 09/26/18 20:32 102 H 10 L 97 09/26/18 20:00 98.8 F 116 H 15 161/120 98 09/26/18 16:11 99.3 F 114 H 20 153/107 98 09/26/18 16:00 20 09/26/18 12:32 95 09/26/18 12:12 113 H 13 135/79 95 09/26/18 12:06 99.2 F 114 H 12 149/93 88 L 09/26/18 12:00 117 H 13 207/107 94 L Oxygen-Last 24 hours O2 Percentage 2 Liters = 28% O2 Percentage 2 Liters = 28% O2 Percentage 2 Liters = 28% Pain Assessment - Last Documented Pain Intensity 0 Pain Scale Used [facility] Intake and Output: Intake & Output 09/24/18 09/25/18 09/26/18 09/27/18 11:59 11:59 11:59 11:59 Intake Total 1712 3849 2358 3877 Output Total 2200 3100 3800 1850 Balance -488 081 -9630 2026 Weight 58.4 kg 61.2 kg 60.4 kg 60 kg Radiology Exams: Radiology Procedures Category Date Time Status CHEST 1 VIEW (PORTABLE) Urgent Exams 09/27/18 08:59 Ordered Assessment/Plan (1) Pneumonia Current Visit: Yes Status: Acute Assessment & Plan: on vanc and zosyn, continue current regimen. will check chest xray and labs, prognosis is poor. caregivers understand Code(s): J18.9 - PNEUMONIA, UNSPECIFIED ORGANISM (2) UTI (urinary tract infection) Current Visit: Yes Status: Acute Assessment & Plan: enterococcus, on vanc Code(s): N39.0 - URINARY TRACT INFECTION, SITE NOT SPECIFIED (3) Encephalopathy acute Current Visit: Yes Status: Acute Code(s): G93.40 - ENCEPHALOPATHY, UNSPECIFIED
[2018-09-27] MEDS: BABY ASPIRIN 81 MG CHEW PEG SCH (09:21)
[2018-09-27] MEDS: NORVASC 5 MG PEG SCH (09:22)
[2018-09-27] MEDS: ZOLOFT 50 MG TABLET PEG SCH (09:22)
[2018-09-27 09:39] LABS: Hematocrit 38.1 % (35-47); Hemoglobin 11.7 gm/dl (12.0-16.0); Mean Cell Volume 101.9 fl (78-100); Mean Corpuscular Hgb Concent. 30.7 g/dl (32-36); Platelet Count 236 K/mm3 (150-450); Red Blood Count 3.74 M/mm3 (4.1-5.4); White Blood Count 17.5 K/mm3 (4.0-10.5)
[2018-09-27] MEDS: NON-FORMULARY ITEM PEG SCH ×2 (09:42→09:44)
[2018-09-27 09:47] LABS: ALBUMIN 3.6 g/dL (3.5-5.0); ALKALINE PHOSPHATASE 89 U/L (38-126); ANION GAP 9.6 MEQ/L (5-15); BLOOD UREA NITROGEN 21 mg/dL (7-17); CHLORIDE 115 mmol/L (98-107); Calcium 8.4 mg/dL (8.4-10.2); Carbon Dioxide 30 mmol/L (22-30); Glucose 311 mg/dL (74-106); MAGNESIUM 1.8 mg/dL (1.6-2.3); SGOT/AST 25 U/L (14-36); SGPT/ALT 31 U/L (0-35); Total Protein 7.5 g/dL (6.3-8.2)
[2018-09-27 09:48] LABS: Mean Corpuscular Hemoglobin 31.2 pg (26-32)
[2018-09-27] MEDS: ENOXAPARIN SODIUM SQ SCH (09:50)
[2018-09-27 09:53] LABS: SODIUM 152 mmol/L (137-145)
[2018-09-27 09:54] LABS: Potassium 2.2 mmol/L (3.5-5.1)
--- NOTE | 2018-09-27 09:56 | XRAY ---
Indication: Pneumonia. Comparison: September 23, 2018. Portable supine chest demonstrates worsening diffuse left lung airspace opacity with new right base infiltrate/atelectasis. Heart is now borderline enlarged.
[2018-09-27] MEDS: VANCOCIN 1 GM VIAL*** 1 GM in Sodium Chloride 0.9% 250 ML 250 ML IV SCH (10:08)
[2018-09-27] MEDS ORDERED: SODIUM CHLORIDE 0.45% W/ 20 mEq KCL 1,000 ML IV SCH (10:15)
[2018-09-27] MEDS ORDERED: POTASSIUM CHLORIDE 20 mEq IN WATER 100ML 20 MEQ/100 ML BAG IV SCH (10:15)
[2018-09-27 11:05] LABS: Lymphocytes 6 % (24-44); Monocyte 1 % (0.0-12.0); Neutrophils 93 % (36.0-66.0); Platelet Estimate NORMAL (NORMAL); Total Cells Counted 100
[2018-09-27] MEDS ORDERED: Sodium Chloride 0.9% 500 ML 500 ML IV ONE (12:12)
--- NOTE | 2018-09-27 15:23 | PCM.DS ---
Discharge Summary Date of Admission: 09/23/18 18:50 Admitting Physician: BUBBA JANE MD Consults: Consults on Case 09/23/18 15:03 Nutritional Consult ROUTINE Primary Care Provider: SHIV LUNDBERG Allergies Allergies Iodinated Contrast- Oral and IV Dye Adverse Reaction (Verified 09/23/18 13:04) Hospital Summary - Hospital Course Hospital Course: patient was admitted with sepsis, pneumonia and UTI, was hydrated and treated with broad spectrum antibiotics of vanc and zosyn. was having pauses on 09/27, electrolytes were drawn and while correcting them she . she was SCO, had severe infectious process and did not respond to appropriate treatment, caregivers were updated during the process and agreed to comfort measures and no aggressive measures due to sco status. - Vitals & Intake/Output Vital Signs: Vital Signs Temperature 99.5 F 09/27/18 07:29 Pulse Rate 107 H 09/27/18 08:21 Respiratory Rate 16 09/27/18 08:21 Blood Pressure 163/90 09/27/18 07:41 O2 Sat by Pulse Oximetry 93 L 09/27/18 08:21 Oxygen-Last Documented O2 Percentage 2 Liters = 28% Intake & Output: Intake & Output 09/25/18 09/26/18 09/27/18 09/28/18 11:59 11:59 11:59 11:59 Intake Total 3849 2358 3877 Output Total 3100 3800 1850 Balance 749 -1442 2026 Weight 61.2 kg 60.4 kg 60 kg - Lab Result Diagrams: 09/27/18 09:35 09/27/18 09:35 Lab Results-Last 24 Hrs: Lab Results-Last 24 Hours 09/27/18 09/27/18 Range/Units 09:35 09:35 WBC 17.5 H (4.0-10.5) K/mm3 RBC 3.74 L (4.1-5.4) M/mm3 Hgb 11.7 L (12.0-16.0) gm/dl Hct 38.1 (35-47) % MCV 101.9 H (78-100) fl MCH 31.2 (26-32) pg MCHC 30.7 L (32-36) g/dl RDW 14.0 (11.5-14.0) % Plt Count 236 (150-450) K/mm3 MPV 11.0 H (6-9.5) fl Segmented Neutrophils 93 H (36.0-66.0) % Lymphocytes (Manual) 6 L (24-44) % Monocytes (Manual) 1 (0.0-12.0) % Platelet Estimate NORMAL (NORMAL) RBC Morphology NORMAL Sodium 152 H* (137-145) mmol/L Potassium 2.2 L* (3.5-5.1) mmol/L Chloride 115 H (98-107) mmol/L Carbon Dioxide 30 (22-30) mmol/L Anion Gap 9.6 (5-15) MEQ/L BUN 21 H (7-17) mg/dL Creatinine 0.80 (0.52-1.04) mg/dL Estimated GFR > 60.0 ML/MIN Glucose 311 H (74-106) mg/dL Calcium 8.4 (8.4-10.2) mg/dL Magnesium 1.8 (1.6-2.3) mg/dL Total Bilirubin 0.70 (0.2-1.3) mg/dL AST 25 (14-36) U/L ALT 31 (0-35) U/L Alkaline Phosphatase 89 (38-126) U/L Serum Total Protein 7.5 (6.3-8.2) g/dL Albumin 3.6 (3.5-5.0) g/dL Micro Results-Entire Visit: Microbiology 09/23/18 11:01 Urine Culture - Final Catherized Enterococcus Faecalis 09/23/18 11:20 Blood Culture - Preliminary Blood NO GROWTH TO DATE 09/23/18 11:10 Blood Culture - Preliminary Blood NO GROWTH TO DATE - Radiology Exams Ordered Rad Exams-Entire Visit: Radiology Procedures Category Date Time Status CHEST 1 VIEW (PORTABLE) Urgent Exams 09/27/18 08:59 Completed - Procedures and Test Procedures and Tests throughout Hospitalization: Therapy Orders & Screens 09/23/18 23:07 EKG STAT Comment: Diagnosis: pneumonia, uti 09/25/18 13:19 Respiratory Therapy Assessment DAILY Comment: Diagnosis: pneumonia, uti 09/26/18 00:30 Oxygen Nasal Cannula 2 lpm Comment: Diagnosis: pneumonia, uti Discharge Exam General Appearance: other (contorted with severe contractures) Final Diagnosis/Problem List - Final Discharge Diagnosis/Problem (1) Current Visit: Yes Status: Acute Code(s): R99 - ILL-DEFINED AND UNKNOWN CAUSE OF MORTALITY (2) Pneumonia Current Visit: Yes Status: Acute Code(s): J18.9 - PNEUMONIA, UNSPECIFIED ORGANISM (3) UTI (urinary tract infection) Current Visit: Yes Status: Acute Code(s): N39.0 - URINARY TRACT INFECTION, SITE NOT SPECIFIED (4) Encephalopathy acute Current Visit: Yes Status: Acute Code(s): G93.40 - ENCEPHALOPATHY, UNSPECIFIED - Discharge Disposition: Condition: Fair Prescriptions: No Action Aspirin EC 81 mg [Ecotrin 81 mg] 81 mg PEG DAILY Sertraline HCl [Zoloft] 5 ml PEG DAILY Gabapentin [Neurontin] 5 ml PEG BID Diazepam 10 mg/2 ml Syringe [Valium 10 mg/2 ml Syringe] 5 mg PEG Q6H Methenamine Hippurate 1 gm PEG BID Amlodipine Besylate 5 mg [Norvasc 5 mg] 2.5 mg PEG DAILY Nystatin Cream 15 gm [Nystop 15 gm Cream] 1 applic TOP DAILY PRN PRN PRN Reason: Redness/Irritation Zinc Oxide Ointment 30 gm 1 applic TOP DAILY PRN PRN PRN Reason: Redness/Irritation Acetaminophen [Mapap] 10 ml PEG Q4H PRN PRN PRN Reason: Fever Hydrocodone Bit/Acetaminophen [Hydrocodon-Acetaminophen 5-325] 10 ml PEG Q6H PRN PRN PRN Reason: Pain Tizanidine HCl 4 mg [Zanaflex 4 MG] 4 mg PEG Q6H Baclofen 20 mg PEG Q4H Omeprazole 40 mg PEG DAILY Lactose-Reduced Food/Fiber [Jevity 1.2 Oscar Liquid] 1,000 ml PO UD Follow up with: SHIV LUNDBERG MD [Primary Care Provider] - 1 Week
[2018-09-27] MEDS ORDERED: PATIENT OWN MEDICATION PEG SCH (20:00)
[2018-09-28] MEDS ORDERED: TROUGH DRUG LEVELS IJ ONE (09:30)
== END 2018-09-27 12:30 | disposition expired | DRG 689 ==
LOC: ED 10:36 → MED SURG 13:25 → OBSVTOIN 18:50 → INTOOBSV 18:50 → ICU 18:51
PROVIDERS: ADMIT Hospitalist; ATTEND Family Medicine
DX: N39.0 Urinary tract infection, site not specified (principal); J18.9 Pneumonia, unspecified organism; G93.40 Encephalopathy, unspecified; N17.9 Acute kidney failure, unspecified; F73 Profound intellectual disabilities; E86.0 Dehydration; R79.89 Other specified abnormal findings of blood chemistry; Z93.1 Gastrostomy status; Z79.899 Other long term (current) drug therapy
CPT/HCPCS: 36000; 36415; 71045; 74021; 80048; 80053; 81001; 82150; 82805; 83605; 83690; 83735; 83880; 84134; 85025; 85027; 85379; 85610; 86308; 87040; 87077; 87086; 87186; 87631; 87651; 93005; 93970; 94762; 96360; 96365; 99285; J0360; J0696; J1650; J2270; J2405; J2543; J3370; J3480; A9270-GY